=== PATIENT | female | born 1990 | race Caucasian/White ===

== ENCOUNTER 2017-10-13 23:53 | Emergency (ER) | payer OTHER ==
[2017-10-14] VITALS: BP 135/77; PULSE 84; RESP 18; TEMP 98.2
[2017-10-14] MEDS ORDERED: diphenhydrAMINE 50 MG/ML 1 ML VIAL IVP STA (00:30)
[2017-10-14] MEDS ORDERED: KETOROLAC 30 MG/ML 1 ML VIAL IVP STA (00:30)
[2017-10-14] MEDS ORDERED: METOCLOPRAMIDE 5 MG/ML 2 ML VIAL IVP STA (00:30)
[2017-10-14] MEDS ORDERED: SODIUM CHLORIDE 0.9% 1,000 ML IV STA (00:30)
--- NOTE | 2017-10-14 00:58 | CT ---
EXAMINATION TYPE: CT brain wo con DATE OF EXAM: 10/14/2017 COMPARISON: NONE HISTORY: headache CT DLP: 1108.40 mGycm. Automated Exposure Control for Dose Reduction was Utilized. TECHNIQUE: CT scan of the head is performed without contrast. FINDINGS: Ventricles and sulci appear normal. There is no mass effect nor midline shift. There is no sign of intracranial hemorrhage. The calvarium is intact. CONCLUSION: Negative CT scan of the brain. There is incomplete pneumatization of mastoid sinuses consistent with some chronic mastoiditis.
--- NOTE | 2017-10-14 01:01 | ED ---
Headache HPI - General Chief Complaint: Headache Stated Complaint: Migraine/Ankle Pain Time Seen by Provider: 10/14/17 00:19 Source: RN notes reviewed Mode of arrival: ambulatory Limitations: no limitations - History of Present Illness Initial Comments: This is a 26-year-old female who presents to the emergency department with chief complaint of migraine. Patient states that she does have a history of headaches but has never had a migraine before. She states that normally she is able to take ibuprofen and her headaches go away, however this time nothing seems to relieve the pain. Patient states that her migraine began last night at 1 AM. She states that she has not gotten any sleep. She admits to associated nausea and did have an episode of vomiting, last time being one half hours ago. Patient denies any falls, injuries or head trauma. She states that she was seen by urgent care at 4 PM this evening and was given Toradol which did not help. Patient states that the headache is located forehead and left side of her head. She describes it as a pressure and stabbing. She also admits to photophobia. Denies any chest pain or shortness of breath, abdominal pain, diarrhea or constipation, numbness or tingling, dizziness. - Related Data Allergies Allergy/AdvReac Type Severity Reaction Status Date / Time No Known Allergies Allergy Verified 10/14/17 00:00 Review of Systems ROS Statement: Those systems with pertinent positive or pertinent negative responses have been documented in the HPI. ROS Other: All systems not noted in ROS Statement are negative. Past Medical History Additional Past Medical History / Comment(s): migraines History of Any Multi-Drug Resistant Organisms: None Reported Past Surgical History: Ear Surgery, Orthopedic Surgery Additional Past Surgical History / Comment(s): bilateral ankle, mastoidectomy Past Psychological History: Anxiety, Bipolar Smoking Status: Never smoker Past Alcohol Use History: None Reported Past Drug Use History: None Reported General Exam - General Exam Comments Initial Comments: General: Awake and alert, well-developed; in no apparent distress. Patient is unkempt, lying in a dark room on the ED stretcher using her gown is a blanket. HEENT: Head atraumatic, normocephalic. Pupils are equal, round and reactive to light. Extraocular movements intact. Oropharynx moist without erythema or exudate. Neck: Supple. Normal ROM. Cardiovascular: Regular rate and rhythm. No murmurs, rubs or gallops. Chest symmetrical. Respiratory: Lungs clear to auscultation bilaterally. No wheezes, rales or rhonchi. Normal respiratory effort with no use of accessory muscles. Musculoskeletal: Normal ROM, no tenderness bilateral upper and lower extremities. Ambulating normally. Skin: [place], warm and dry without rashes or lesions. Neurological: Alert and oriented x3. CN II-XII grossly intact. Speech is fluent and answers are appropriate. No focal neuro deficits. Limitations: no limitations Course Vital Signs 10/13/17 23:58 Temperature 98.2 F Pulse Rate 84 Respiratory 18 Rate Blood Pressure 135/77 O2 Sat by Pulse 97 Oximetry Medical Decision Making - Medical Decision Making This is a 26-year-old female presents to the emergency department with chief complaint of migraine. Patient was given Toradol, Reglan and Benadryl while in the emergency department. She stated that this migraine is different from her normal headaches, that they are usually relieved with ibuprofen. Computed tomography scan of brain without contrast was obtained. This revealed no acute abnormalities. As I went in to discuss findings with patient, she was getting dressed and stated that she needed to leave as soon as possible. She stated that her ex- was going to be leaving her 2-year-old child on the doorstep at home if she did not get home. Patient did state that her symptoms had improved. She signed out AMA. - Radiology Data Radiology results: report reviewed CT brain without contrast conclusion: Negative computed tomography scan of the brain. There is incomplete pneumatization of the mastoid sinuses consistent with some chronic mastoiditis. Disposition Clinical Impression: Migraine Disposition: Left Against Medical Advice Condition: Stable Referrals: Alla Chanel MD [Primary Care Provider] - 1-2 days Time of Disposition: :
== END 2017-10-14 01:24 | disposition left against medical advice (07) ==
LOC: EC 23:53
DX: G43.909 Migraine, unspecified, not intractable, without status migrainosus (principal)
CPT/HCPCS: 70450; 99283; 96374; 96375 ×2; J1200; J2765; J1885

== ENCOUNTER 2020-03-24 15:22 | Emergency (ER) | payer OTHER ==
[2020-03-24 15:32] VITALS: TEMP 98.4
[2020-03-24] MEDS ORDERED: SODIUM CHLORIDE 0.9% 1,000 ML IV STA (15:47)
[2020-03-24] MEDS ORDERED: LORazepam 2 MG/ML INJ IV STA (15:47)
--- NOTE | 2020-03-24 15:48 | ED ---
Anxiety HPI - General Chief Complaint: Anxiety Stated Complaint: anxiety Time Seen by Provider: 03/24/20 15:25 Source: EMS, RN notes reviewed, old records reviewed Mode of arrival: EMS - History of Present Illness Initial Comments: This is a 29-year-old female DF for evaluation of severe anxiety patient resents today for evaluation of anxiety attack patient thought she was given a diet. She not homicidal or suicidal no drugs or alcohol today. She has several from severe anxiety MD Complaint: anxiety, heart racing, shortness of breath -: hour(s) Symptoms: dyspnea, palpitations Place: home Previous History of Same: Yes Severity: severe Quality: worsening, similar to prior episodes Provoking factors: emotional stress Improves With: nothing Worsens With: nothing Associated symptoms: palpitations, malaise - Related Data Home Medications: Home Medications Medication Instructions Recorded Confirmed Butalb/Acetaminophen/Caffeine 1 tab PO Q4H PRN 03/24/20 03/24/20 [Esgic 50-325-40 mg Tablet] Fenofibrate Nanocrystallized 48 mg PO DAILY 03/24/20 03/24/20 [Fenofibrate] Fluticasone Nasal [place] [Flonase 1 spray EA NOSTRIL BID 03/24/20 03/24/20 Nasal [place]] Gabapentin [Neurontin] 300 mg PO TID 03/24/20 03/24/20 Lurasidone HCl [Latuda] 60 mg PO DAILY 03/24/20 03/24/20 Norgestimate-Ethinyl Estradiol 1 tab PO DAILY 03/24/20 03/24/20 [Lhu-Wx-Wulzlgke Tablet] Omeprazole [PriLOSEC] 40 mg PO DAILY 03/24/20 03/24/20 QUEtiapine FUMARATE [SEROquel] 150 mg PO HS 03/24/20 03/24/20 buPROPion XL [Wellbutrin Xl] 450 mg PO DAILY 03/24/20 03/24/20 hydrOXYzine HCL [Atarax] 10 mg PO TID PRN 03/24/20 03/24/20 Allergies/Adverse Reactions: Allergies Allergy/AdvReac Type Severity Reaction Status Date / Time No Known Allergies Allergy Verified 03/24/20 16:26 Review of Systems ROS Statement: Those systems with pertinent positive or pertinent negative responses have been documented in the HPI. ROS Other: All systems not noted in ROS Statement are negative. Past Medical History Additional Past Medical History / Comment(s): migraines History of Any Multi-Drug Resistant Organisms: None Reported Past Surgical History: Ear Surgery, Orthopedic Surgery Additional Past Surgical History / Comment(s): bilateral ankle, mastoidectomy Past Psychological History: Anxiety, Bipolar Smoking Status: Never smoker Past Alcohol Use History: None Reported Past Drug Use History: Marijuana General Exam Limitations: no limitations General appearance: alert, in no apparent distress, anxious Head exam: Present: atraumatic, normocephalic, normal inspection Eye exam: Present: normal appearance, PERRL, EOMI. Absent: scleral icterus, conjunctival injection, periorbital swelling ENT exam: Present: normal exam, mucous membranes moist Neck exam: Present: normal inspection. Absent: tenderness, meningismus, lymphadenopathy Respiratory exam: Present: normal lung sounds bilaterally. Absent: respiratory distress, wheezes, rales, rhonchi, stridor Cardiovascular Exam: Present: normal rhythm, tachycardia, normal heart sounds. Absent: systolic murmur, diastolic murmur, rubs, gallop, clicks GI/Abdominal exam: Present: soft, normal bowel sounds. Absent: distended, tenderness, guarding, rebound, rigid Extremities exam: Present: normal inspection, full ROM, normal capillary refill. Absent: tenderness, pedal edema, joint swelling, calf tenderness Back exam: Present: normal inspection Neurological exam: Present: alert, oriented X3, CN II-XII intact Psychiatric exam: Present: depressed Skin exam: Present: warm, dry, intact, normal color. Absent: rash Course Vital Signs 03/24/20 15:23 Temperature 98.4 F Pulse Rate 117 H Respiratory 20 Rate Blood Pressure 170/116 O2 Sat by Pulse 99 Oximetry - Reevaluation(s) Reevaluation #1: 03/24/20 17:16 Medical record is reviewed Reevaluation #2: 03/24/20 17:16 Patient symptoms are improved Reevaluation #3: 03/24/20 17:16 Informed results reassured and is okay for discharge Medical Decision Making - Medical Decision Making 79 female DF for anxiety think she is going to , CT chest is negative for acute disease - Lab Data Result diagrams: 03/24/20 16:31 03/24/20 16:31 Lab Results 03/24/20 03/24/20 03/24/20 Range/Units 16:31 16:31 16:31 WBC 6.6 (3.8-10.6) k/uL RBC 4.94 (3.80-5.40) m/uL Hgb 13.8 (11.4-16.0) gm/dL Hct 43.0 (34.0-46.0) % MCV 87.1 (80.0-100.0) fL MCH 28.0 (25.0-35.0) pg MCHC 32.2 (31.0-37.0) g/dL RDW 14.1 (11.5-15.5) % Plt Count 243 (150-450) k/uL Neutrophils % 55 % Lymphocytes % 36 % Monocytes % 4 % Eosinophils % 3 % Basophils % 1 % Neutrophils # 3.6 (1.3-7.7) k/uL Lymphocytes # 2.4 (1.0-4.8) k/uL Monocytes # 0.3 (0-1.0) k/uL Eosinophils # 0.2 (0-0.7) k/uL Basophils # 0.0 (0-0.2) k/uL PT 9.5 (9.0-12.0) sec INR 0.9 (<1.2) APTT 24.4 (22.0-30.0) sec D-Dimer 0.30 (<0.60) mg/L FEU Sodium 139 (137-145) mmol/L Potassium 4.0 (3.5-5.1) mmol/L Chloride 102 (98-107) mmol/L Carbon Dioxide 25 (22-30) mmol/L Anion Gap 12 mmol/L BUN 8 (7-17) mg/dL Creatinine 0.72 (0.52-1.04) mg/dL Est GFR (CKD-EPI)AfAm >90 (>60 ml/min/1.73 sqM) Est GFR (CKD-EPI)NonAf >90 (>60 ml/min/1.73 sqM) Glucose 87 (74-99) mg/dL Calcium 9.6 (8.4-10.2) mg/dL Magnesium 2.0 (1.6-2.3) mg/dL Total Bilirubin 0.5 (0.2-1.3) mg/dL AST 37 H (14-36) U/L ALT 24 (4-34) U/L Alkaline Phosphatase 78 (38-126) U/L NT-Pro-B Natriuret Pep pg/mL Total Protein 8.1 (6.3-8.2) g/dL Albumin 4.8 (3.5-5.0) g/dL Lipase 127 (23-300) U/L 03/24/20 Range/Units 16:31 WBC (3.8-10.6) k/uL RBC (3.80-5.40) m/uL Hgb (11.4-16.0) gm/dL Hct (34.0-46.0) % MCV (80.0-100.0) fL MCH (25.0-35.0) pg MCHC (31.0-37.0) g/dL RDW (11.5-15.5) % Plt Count (150-450) k/uL Neutrophils % % Lymphocytes % % Monocytes % % Eosinophils % % Basophils % % Neutrophils # (1.3-7.7) k/uL Lymphocytes # (1.0-4.8) k/uL Monocytes # (0-1.0) k/uL Eosinophils # (0-0.7) k/uL Basophils # (0-0.2) k/uL PT (9.0-12.0) sec INR (<1.2) APTT (22.0-30.0) sec D-Dimer (<0.60) mg/L FEU Sodium (137-145) mmol/L Potassium (3.5-5.1) mmol/L Chloride (98-107) mmol/L Carbon Dioxide (22-30) mmol/L Anion Gap mmol/L BUN (7-17) mg/dL Creatinine (0.52-1.04) mg/dL Est GFR (CKD-EPI)AfAm (>60 ml/min/1.73 sqM) Est GFR (CKD-EPI)NonAf (>60 ml/min/1.73 sqM) Glucose (74-99) mg/dL Calcium (8.4-10.2) mg/dL Magnesium (1.6-2.3) mg/dL Total Bilirubin (0.2-1.3) mg/dL AST (14-36) U/L ALT (4-34) U/L Alkaline Phosphatase (38-126) U/L NT-Pro-B Natriuret Pep 22 pg/mL Total Protein (6.3-8.2) g/dL Albumin (3.5-5.0) g/dL Lipase (23-300) U/L - Radiology Data Radiology results: report reviewed (CTA chest is negative for acute disease), image reviewed Disposition Clinical Impression: Acute anxiety, Panic attack Disposition: HOME SELF-CARE Condition: Good Instructions (If sedation given, give patient instructions): Generalized Anxiety Disorder (ED) Is patient prescribed a controlled substance at d/c from ED?: No Referrals: None,Stated [Primary Care Provider] - 1-2 days
[2020-03-24 16:49] LABS: Basophils % (A) 1 %; Eosinophils # (A) 0.2 k/uL (0-0.7); Eosinophils % (A) 3 %; HGB 13.8 gm/dL (11.4-16.0); Lymphocytes # (A) 2.4 k/uL (1.0-4.8); Lymphocytes % (A) 36 %; MCHC 32.2 g/dL (31.0-37.0); MCV 87.1 fL (80.0-100.0); Mean Platelet Volume 8.6; Monocytes # (A) 0.3 k/uL (0-1.0); Monocytes % (A) 4 %; Neutrophils # (A) 3.6 k/uL (1.3-7.7); Neutrophils % (A) 55 %; Platelet Count 243 k/uL (150-450); RBC 4.94 m/uL (3.80-5.40); RDW 14.1 % (11.5-15.5); WBC 6.6 k/uL (3.8-10.6)
--- NOTE | 2020-03-24 16:59 | CT ---
EXAMINATION TYPE: CT angio chest DATE OF EXAM: 03/24/2020 COMPARISON: NONE HISTORY: Chest pain and anxiety. Rule out pulmonary embolism. CT DLP: 643.2 mGycm. Automated Exposure Control for Dose Reduction was Utilized. CONTRAST: CTA scan of the thorax is performed with IV Contrast, patient injected with 100ml mL of Isovue 370, p ulmonary embolism protocol. MIP Images are created on CT scanner and reviewed. FINDINGS: LUNGS: The lungs are grossly clear, there is no concerning parenchymal mass or nodule identified. No suspicious focal groundglass opacity or consolidation. There is no pleural effusion or pneumothorax seen. The tracheobronchial tree is patent. MEDIASTINUM: There is slightly suboptimal bolus with near equal contrast a right left heart systems b ut no convincing CT evidence for acute pulmonary embolism. Affect enhancement of the aorta without an eurysm or dissection. There are no greater than 1 cm hilar or mediastinal lymph nodes. No cardiomeg melodie or pericardial effusion is seen. OTHER: Slight dextroconvex scoliotic curvature or positioning. IMPRESSION: No CT evidence for acute pulmonary embolism. No suspicious acute pulmonary process.
[2020-03-24 17:05] LABS: ALT 24 U/L (4-34); AST 37 U/L (14-36); African American GFR (CKD) >90 (>60 ml/min/1.73 sqM); Albumin 4.8 g/dL (3.5-5.0); Alkaline Phosphatase 78 U/L (38-126); Anion Gap 12 mmol/L; Blood Urea Nitrogen 8 mg/dL (7-17); Calcium 9.6 mg/dL (8.4-10.2); Carbon Dioxide 25 mmol/L (22-30); Chloride 102 mmol/L (98-107); Glucose 87 mg/dL (74-99); Non-African American GFR(CKD) >90 (>60 ml/min/1.73 sqM); Sodium 139 mmol/L (137-145); Total Bilirubin 0.5 mg/dL (0.2-1.3); Total Protein 8.1 g/dL (6.3-8.2)
[2020-03-24 17:10] LABS: D-Dimer 0.3 mg/L FEU (<0.60); INR 0.9 (<1.2); Partial Thromboplastin Time 24.4 sec (22.0-30.0); Prothrombin Time 9.5 sec (9.0-12.0)
[2020-03-24 17:31] VITALS: BP 130/90; PULSE 90; RESP 18
== END 2020-03-24 17:26 | disposition home or self-care (01) ==
LOC: EC 15:22
DX: F41.0 Panic disorder [episodic paroxysmal anxiety] (principal); Z79.51 Long term (current) use of inhaled steroids; Z79.899 Other long term (current) drug therapy
CPT/HCPCS: 36415; 93005; 85379; 83880; 80053; 83690; 83735; 84484; 85025; 85610; 85730; 71275; 99284; 96374; 96361; J2060; Q9967

== ENCOUNTER 2020-04-28 23:33 | Emergency (ER) | payer OTHER ==
[2020-04-28 23:39] VITALS: RESP 20
--- NOTE | 2020-04-28 23:44 | ED ---
Lower Extremity Injury HPI - General Stated Complaint: Leg Fracture Time Seen by Provider: 04/28/20 23:35 Source: patient, EMS, RN notes reviewed Mode of arrival: EMS Limitations: physical limitation - History of Present Illness Initial Comments: 29-year-old female presents emergency Department as a transfer from [facility] with chief complaint of left ankle injury. Patient states that she was walking stepped states that her ankle rolled and felt a snap. Patient was found to have tib-fib fracture. Patient does admit that she's had bilateral ankle surgery in 2014. Patient states that she does not see a current orthopedic physician. Patient denies any paresthesias. Patient had multiple rounds of pain medications and pain was not controlled at that time. Patient denies any other complaints. - Related Data Home Medications Medication Instructions Recorded Confirmed Butalb/Acetaminophen/Caffeine 1 tab PO Q4H PRN 03/24/20 03/24/20 [Esgic 50-325-40 mg Tablet] Fenofibrate Nanocrystallized 48 mg PO DAILY 03/24/20 03/24/20 [Fenofibrate] Fluticasone Nasal [place] [Flonase 1 spray EA NOSTRIL BID 03/24/20 03/24/20 Nasal [place]] Gabapentin [Neurontin] 300 mg PO TID 03/24/20 03/24/20 Lurasidone HCl [Latuda] 60 mg PO DAILY 03/24/20 03/24/20 Norgestimate-Ethinyl Estradiol 1 tab PO DAILY 03/24/20 03/24/20 [Ffs-Yr-Zpuggsik Tablet] Omeprazole [PriLOSEC] 40 mg PO DAILY 03/24/20 03/24/20 QUEtiapine FUMARATE [SEROquel] 150 mg PO HS 03/24/20 03/24/20 buPROPion XL [Wellbutrin Xl] 450 mg PO DAILY 03/24/20 03/24/20 hydrOXYzine HCL [Atarax] 10 mg PO TID PRN 03/24/20 03/24/20 Allergies Allergy/AdvReac Type Severity Reaction Status Date / Time No Known Allergies Allergy Verified 04/28/20 23:38 Review of Systems ROS Statement: Those systems with pertinent positive or pertinent negative responses have been documented in the HPI. ROS Other: All systems not noted in ROS Statement are negative. Past Medical History Additional Past Medical History / Comment(s): migraines History of Any Multi-Drug Resistant Organisms: None Reported Past Surgical History: Ear Surgery, Orthopedic Surgery Additional Past Surgical History / Comment(s): bilateral ankle, mastoidectomy Past Psychological History: Anxiety, Bipolar Smoking Status: Never smoker Past Alcohol Use History: None Reported Past Drug Use History: Marijuana General Exam Limitations: no limitations General appearance: alert, in no apparent distress Head exam: Present: atraumatic, normocephalic, normal inspection Respiratory exam: Present: normal lung sounds bilaterally. Absent: respiratory distress, wheezes, rales, rhonchi, stridor Cardiovascular Exam: Present: regular rate, normal rhythm, normal heart sounds. Absent: systolic murmur, diastolic murmur, rubs, gallop, clicks GI/Abdominal exam: Present: soft, normal bowel sounds. Absent: distended, tenderness, guarding, rebound, rigid Extremities exam: Present: other (There is a short leg splint on the left lower extremity color and Warmth equal, patient has full sensation) Skin exam: Present: warm, dry, intact, normal color. Absent: rash Course Vital Signs 04/28/20 23:34 Temperature 98.6 F Pulse Rate 70 Respiratory 20 Rate Blood Pressure 141/103 O2 Sat by Pulse 97 Oximetry Medical Decision Making - Medical Decision Making Discussed with on-call orthopedics [facility] orth[facility] who reviewed imaging and recommends patient referred to, orthopedic surgeon. Patient is neurovascular intact patient still reports pain. Patient will be transferred to [facility]. Case discussed with [facility] ER and orthopedic surgeon Disposition Clinical Impression: Closed fracture of shaft of left tibia and fibula Disposition: OTHER INSTITUTION NOT DEFINED Condition: Stable Referrals: Alla Chanel MD [Primary Care Provider] - 1-2 days Time of Disposition: 23:57 - Out of Hospital Transfer - Req. Specs Out of Hospital Transfer - Requested Specifics: Other Emergency Center ([facility])
[2020-04-29 00:41] VITALS: BP 148/90; PULSE 80; TEMP 98.3
== END 2020-04-29 00:49 | disposition other institution (70) ==
LOC: EC 23:33
DX: S82.202A Unspecified fracture of shaft of left tibia, initial encounter for closed fracture (principal); S82.402A Unspecified fracture of shaft of left fibula, initial encounter for closed fracture; F41.9 Anxiety disorder, unspecified; F31.9 Bipolar disorder, unspecified; G43.909 Migraine, unspecified, not intractable, without status migrainosus; Z79.51 Long term (current) use of inhaled steroids; Z79.3 Long term (current) use of hormonal contraceptives; Z79.899 Other long term (current) drug therapy; Z98.890 Other specified postprocedural states; X50.1XXA Overexertion from prolonged static or awkward postures, initial encounter; Y93.01 Activity, walking, marching and hiking; Y92.009 Unspecified place in unspecified non-institutional (private) residence as the place of occurrence of the external cause
CPT/HCPCS: 99284

== ENCOUNTER 2020-05-14 16:22 | Emergency (ER) | payer OTHER ==
[2020-05-14 16:39] VITALS: RESP 18
[2020-05-14] MEDS ORDERED: LORazepam 2 MG/ML INJ IM STA (17:25)
[2020-05-14] MEDS ORDERED: MORPHINE SULFATE 4 MG/ML SYRINGE IVP STA (17:26)
[2020-05-14] MEDS ORDERED: MORPHINE SULFATE 4 MG/ML SYRINGE IM STA (17:36)
--- NOTE | 2020-05-14 17:39 | ED ---
Extremity Problem HPI - General Chief complaint: Extremity Problem,Nontraumatic Stated complaint: left lower extremity pain Time Seen by Provider: 05/14/20 16:53 Source: patient Mode of arrival: wheelchair Limitations: no limitations - History of Present Illness Initial comments: Patient is a 29-year-old female presenting to the emergency room with a chief complaint of left leg pain. Patient states about 2 weeks ago she had a left tibia-fibula fracture. States it was reduced in this emergency department and she was transferred to [facility]. States Dr. Ho perform surgery with plate and screws. Patient states she has been tolerating the pain well except for the last 2 days when she's had increased pain. States she was given oxycodone but does not want to take it. States she's also been getting very sleepy whenever she is taking the medication. She also reports having one 2 vomiting episodes yesterday and today. States she also has anxiety which is not well controlled. States her anxiety is really high at the moment. - Related Data Home Medications Medication Instructions Recorded Confirmed Butalb/Acetaminophen/Caffeine 1 tab PO Q4H PRN 03/24/20 03/24/20 [Esgic 50-325-40 mg Tablet] Fenofibrate Nanocrystallized 48 mg PO DAILY 03/24/20 03/24/20 [Fenofibrate] Fluticasone Nasal [place] [Flonase 1 spray EA NOSTRIL BID 03/24/20 03/24/20 Nasal [place]] Gabapentin [Neurontin] 300 mg PO TID 03/24/20 03/24/20 Lurasidone HCl [Latuda] 60 mg PO DAILY 03/24/20 03/24/20 Norgestimate-Ethinyl Estradiol 1 tab PO DAILY 03/24/20 03/24/20 [Euz-Pt-Ngfelgiv Tablet] Omeprazole [PriLOSEC] 40 mg PO DAILY 03/24/20 03/24/20 QUEtiapine FUMARATE [SEROquel] 150 mg PO HS 03/24/20 03/24/20 buPROPion XL [Wellbutrin Xl] 450 mg PO DAILY 03/24/20 03/24/20 hydrOXYzine HCL [Atarax] 10 mg PO TID PRN 03/24/20 03/24/20 Allergies Allergy/AdvReac Type Severity Reaction Status Date / Time No Known Allergies Allergy Verified 05/14/20 16:39 Review of Systems ROS Statement: Those systems with pertinent positive or pertinent negative responses have been documented in the HPI. ROS Other: All systems not noted in ROS Statement are negative. Past Medical History Additional Past Medical History / Comment(s): migraines History of Any Multi-Drug Resistant Organisms: None Reported Past Surgical History: Ear Surgery, Orthopedic Surgery Additional Past Surgical History / Comment(s): bilateral ankle, mastoidectomy Past Psychological History: Anxiety, Bipolar Smoking Status: Never smoker Past Alcohol Use History: None Reported Past Drug Use History: Marijuana General Exam Limitations: no limitations General appearance: alert, in no apparent distress, anxious, obese Head exam: Present: atraumatic, normocephalic, normal inspection Eye exam: Present: normal appearance, PERRL, EOMI Pupils: Present: normal accommodation ENT exam: Present: normal exam, normal oropharynx, mucous membranes moist, TM's normal bilaterally, normal external ear exam Neck exam: Present: normal inspection, full ROM. Absent: tenderness Respiratory exam: Present: normal lung sounds bilaterally. Absent: respiratory distress, wheezes, rales Cardiovascular Exam: Present: regular rate, normal rhythm, normal heart sounds Extremities exam: Present: normal inspection (Cast was removed. Mostly the pain is located along the anterior aspect of the tibia. There is no obvious signs of infection. The incision sites are healing well. Sutures are intact.), full ROM, tenderness (Tenderness along the anterior aspect of the tibia, left.), normal capillary refill, other (+2 dorsalis pedis and posterior tibialis bilaterally. Sensation to light touch and temperature intact.). Absent: pedal edema, joint swelling, calf tenderness (tenderness) Back exam: Present: normal inspection, full ROM. Absent: tenderness, CVA tenderness (R), CVA tenderness (L) Neurological exam: Present: alert, oriented X3 Psychiatric exam: Present: normal affect, anxious Skin exam: Present: warm, dry, intact, normal color Course Vital Signs 05/14/20 05/14/20 16:32 19:45 Temperature 98.9 F Pulse Rate 98 84 Respiratory 18 18 Rate Blood Pressure 151/91 145/107 O2 Sat by Pulse 98 99 Oximetry Procedures - Cast Removal Reason for procedure: other (To evaluate for DVT) Cut Saw used: Yes Cast procedure: removal Post Removal Neuro Exam: intact Post Removal Vascular Exam: intact Patient Tolerated Procedure: well, no complications - Orthopedic Splinting/Casting Injury #1 Side: left Lower Extremity Injury Location: short leg Lower Extremity Immobilizer: posterior splint, Florencio wrap, synthetic pre-padded splint Medical Decision Making - Medical Decision Making patient is a 29-year-old male presenting to emergency Department with chief complaint of left leg pain. To perform a thorough physical examination I had to remove the cast. This was performed with a saw. Patient did tolerate procedure well. She does have history of anxiety and had a panic attack in the emergency department. Patient was given 1 mg of Ativan. She also continued to complain of pain and was given 4 mg of morphine. Once the cast was removed, the sutures appear to be healing well. There is no overlying cellulitic skin changes that would suggest cellulitis or any other infection. She is neurovascularly intact in the left lower extremity. There was a concern for DVT. Doppler ultrasound performed showed no signs of DVT. She does not have any chest pain or shortness of breath. Posterior splint was applied. She already has crutches at home and declined new ones. She is going to follow-up with her family resource specialist in the next few days. She was advised to avoid putting pressure on the leg. Allison has oxycodone for pain at home. Strict return parameters were thoroughly discussed the patient was understanding and agreeable. Her vitals are stable. Case discussed with physician. Disposition Clinical Impression: Leg pain, left Disposition: HOME SELF-CARE Condition: Stable Instructions (If sedation given, give patient instructions): Leg Pain (ED) Additional Instructions: Follow-up with the family resource specialist. Return to emergency department if symptoms worsen. Is patient prescribed a controlled substance at d/c from ED?: No Referrals: Nilesh Cummins MD [Primary Care Provider] - 1-2 days Time of Disposition: 20:07
--- NOTE | 2020-05-14 19:26 | US ---
EXAMINATION TYPE: US venous doppler duplex LE LT DATE OF EXAM: 05/14/2020 7:09 PM COMPARISON: NONE CLINICAL HISTORY: 2 wk post op tib fib fx repair, r/o dvt. 2 weeks pos op tib fib fx repair. R/O DVT. No hx of DVT. Patient unsure if she is on blood thinners. SIDE PERFORMED: Left TECHNIQUE: The lower extremity deep venous system is examined utilizing real time linear array sonog neil with graded compression, doppler sonography and color-flow sonography. VESSELS IMAGED: External Iliac Vein (EIV) Common Femoral Vein Deep Femoral Vein Greater Saphenous Vein * Femoral Vein Popliteal Vein Small Saphenous Vein * Proximal Calf Veins (* superficial vessels) Left Leg: No evidence of DVT in veins imaged at this time from prox calf veins to EIV. IMPRESSION: No sign of deep vein thrombosis in the left leg.
[2020-05-14 20:28] VITALS: BP 148/85; PULSE 89; TEMP 98
== END 2020-05-14 20:39 | disposition home or self-care (01) ==
LOC: EC 16:22
DX: M79.605 Pain in left leg (principal); F41.0 Panic disorder [episodic paroxysmal anxiety]; G43.909 Migraine, unspecified, not intractable, without status migrainosus; F31.9 Bipolar disorder, unspecified; Z79.3 Long term (current) use of hormonal contraceptives; Z79.899 Other long term (current) drug therapy; Z98.890 Other specified postprocedural states; Z87.81 Personal history of (healed) traumatic fracture
CPT/HCPCS: 93971; 96372 ×2; 99283; 29515; J2060; J2270

== ENCOUNTER 2020-05-16 20:43 | Observation (INO) | payer OTHER ==
[2020-05-16] MEDS ORDERED: NALOXONE 0.4 MG/ML 1 ML VIAL IVP STA ×3 (21:17→23:01)
--- NOTE | 2020-05-16 22:22 | XR ---
EXAMINATION TYPE: XR foot complete LT DATE OF EXAM: 05/16/2020 COMPARISON: NONE HISTORY: Pain TECHNIQUE: 3 views FINDINGS: Metatarsals are intact. I see no fracture nor dislocation. There is a plate fixing the dist al fibula. There is intramedullary bruno fixing the distal tibia. The tarsal bones are intact. IMPRESSION: No acute abnormality of the left foot.
--- NOTE | 2020-05-16 22:24 | XR ---
EXAMINATION TYPE: XR tibia fibula LT DATE OF EXAM: 05/16/2020 COMPARISON: 04/28/2020 HISTORY: Pain TECHNIQUE: 4 views FINDINGS: There is intramedullary bruno fixing fracture of the distal shaft of the tibia. There is a co mminuted fracture proximal shaft of the fibula without displacement. There is a plate with screws fix ing the distal fibula. IMPRESSION: Fractures as above. Fragments are in good anatomic position. No complicating process seen . There is satisfactory reduction of the tibia fracture compared to old exam.
[2020-05-16 22:36] LABS: Basophils # (A) 0.1 k/uL (0-0.2); Basophils % (A) 1 %; Eosinophils # (A) 0.2 k/uL (0-0.7); Eosinophils % (A) 4 %; HCT 36.1 % (34.0-46.0); HGB 11.7 gm/dL (11.4-16.0); Lymphocytes # (A) 3.1 k/uL (1.0-4.8); Lymphocytes % (A) 52 %; MCH 28.6 pg (25.0-35.0); MCHC 32.3 g/dL (31.0-37.0); MCV 88.5 fL (80.0-100.0); Mean Platelet Volume 8.3; Monocytes # (A) 0.3 k/uL (0-1.0); Monocytes % (A) 4 %; Neutrophils # (A) 2.2 k/uL (1.3-7.7); Neutrophils % (A) 37 %; Platelet Count 303 k/uL (150-450); RBC 4.07 m/uL (3.80-5.40); RDW 13.9 % (11.5-15.5); WBC 5.9 k/uL (3.8-10.6)
[2020-05-16 22:56] LABS: ALT 17 U/L (4-34); AST 35 U/L (14-36); Acetaminophen <10.0 ug/mL; African American GFR (CKD) >90 (>60 ml/min/1.73 sqM); Albumin 3.8 g/dL (3.5-5.0); Alcohol <10 mg/dL; Alkaline Phosphatase 91 U/L (38-126); Anion Gap 6 mmol/L; Blood Urea Nitrogen 14 mg/dL (7-17); Calcium 8.9 mg/dL (8.4-10.2); Carbon Dioxide 25 mmol/L (22-30); Chloride 109 mmol/L (98-107); Glucose 93 mg/dL (74-99); Non-African American GFR(CKD) >90 (>60 ml/min/1.73 sqM); Potassium 4.4 mmol/L (3.5-5.1); Salicylate <1.0 mg/dL; Sodium 140 mmol/L (137-145); Total Bilirubin 0.4 mg/dL (0.2-1.3); Total Protein 6.8 g/dL (6.3-8.2)
--- NOTE | 2020-05-16 23:03 | ED ---
General Adult HPI - General Source: patient, EMS, RN notes reviewed, old records reviewed Mode of arrival: EMS <Mason Hernandez - Last Filed: 05/16/20 23:39> <Rony Beard - Last Filed: 05/17/20 02:01> - General Chief complaint: Fall Stated complaint: leg pain Time Seen by Provider: 05/16/20 21:13 - History of Present Illness Initial comments: 29-year-old female patient past history significant for a tib-fib fracture number weeks ago which was repaired surgically presented to ED for evaluation of pain in that area. Patient was prescribed pressure on and walked out and not having a lot of pain. Upon evaluation room patient appears very tired. She reports that she took both her Percocet as well as Xanax. Denies any alcohol use. Denies falling hitting her head or any other complaints. (Mason Hernandez) - Related Data Home Medications Medication Instructions Recorded Confirmed Butalb/Acetaminophen/Caffeine 1 tab PO Q4H PRN 03/24/20 03/24/20 [Esgic 50-325-40 mg Tablet] Fenofibrate Nanocrystallized 48 mg PO DAILY 03/24/20 03/24/20 [Fenofibrate] Fluticasone Nasal [place] [Flonase 1 spray EA NOSTRIL BID 03/24/20 03/24/20 Nasal [place]] Gabapentin [Neurontin] 300 mg PO TID 03/24/20 03/24/20 Lurasidone HCl [Latuda] 60 mg PO DAILY 03/24/20 03/24/20 Norgestimate-Ethinyl Estradiol 1 tab PO DAILY 03/24/20 03/24/20 [Vlt-Jw-Pzrhwvjs Tablet] Omeprazole [PriLOSEC] 40 mg PO DAILY 03/24/20 03/24/20 QUEtiapine FUMARATE [SEROquel] 150 mg PO HS 03/24/20 03/24/20 buPROPion XL [Wellbutrin Xl] 450 mg PO DAILY 03/24/20 03/24/20 hydrOXYzine HCL [Atarax] 10 mg PO TID PRN 03/24/20 03/24/20 Allergies Allergy/AdvReac Type Severity Reaction Status Date / Time No Known Allergies Allergy Verified 05/14/20 16:39 Review of Systems ROS Other: All systems not noted in ROS Statement are negative. <Mason Hernandez - Last Filed: 05/16/20 23:39> ROS Other: All systems not noted in ROS Statement are negative. <Rony Beard - Last Filed: 05/17/20 02:01> ROS Statement: Those systems with pertinent positive or pertinent negative responses have been documented in the HPI. Past Medical History Additional Past Medical History / Comment(s): migraines History of Any Multi-Drug Resistant Organisms: None Reported Past Surgical History: Ear Surgery, Orthopedic Surgery Additional Past Surgical History / Comment(s): bilateral ankle, mastoidectomy Past Psychological History: Anxiety, Bipolar Smoking Status: Former smoker Past Alcohol Use History: None Reported Past Drug Use History: Marijuana <Mason Hernandez - Last Filed: 05/16/20 23:39> General Exam <Mason Hernandez - Last Filed: 05/16/20 23:39> - General Exam Comments Initial Comments: Constitutional: NAD HEENT: NC/AT, trachea midline, neck supple, no lymphadenopathy. Posterior pharyn x non erythematous, without exudates. External ears appear normal, without discharge. Mucous membranes moist. Eyes PERRLA, EOM intact. There is no scleral icterus. No pallor noted. Cardiopulmonary: RRR, no murmurs, rubs or gallops, no JVD noted. Lungs CTAB in anterior and posterior castro. No peripheral edema. Abdominal exam: Abdomen soft and non-distended. Abdomen non-tender to palpation in all 4 quadrants. Bowel sounds active in LLQ. No hepatosplenomegaly. No ecchymosis Neuro: CN II-XII grossly intact. No nuchal rigidity. No raccon eyes, no andino sign, no hemotympanum. No cervical spinal tenderness. MSK: Full active ROM in upper and lower extremities, 5/5 stregnth. (Mason Hernandez) Course Vital Signs 05/16/20 05/16/20 05/16/20 20:44 21:22 21:47 Temperature 98.3 F Pulse Rate 76 Pulse Rate [ Pulse Oximetery ] Respiratory 18 16 16 Rate Blood Pressure 137/104 Blood Pressure [Right Arm] O2 Sat by Pulse 99 Oximetry 05/16/20 05/16/20 05/16/20 22:30 23:00 23:14 Temperature 98.5 F Pulse Rate 62 72 Pulse Rate [ Pulse Oximetery ] Respiratory 20 20 20 Rate Blood Pressure 124/95 123/89 Blood Pressure [Right Arm] O2 Sat by Pulse 99 99 Oximetry 05/17/20 05/17/20 05/17/20 00:00 01:24 01:33 Temperature 98.6 F 97.8 F Pulse Rate 72 Pulse Rate [ 62 62 Pulse Oximetery ] Respiratory 18 20 20 Rate Blood Pressure 125/85 Blood Pressure 127/88 [Right Arm] O2 Sat by Pulse 99 100 Oximetry Medical Decision Making - Lab Data Result diagrams: 05/16/20 22:26 05/16/20 22:26 - EKG Data -: EKG Interpreted by Me (and Dr. Galvan ) <Mason Hernandez - Last Filed: 05/16/20 23:39> - Lab Data Result diagrams: 05/16/20 22:26 05/16/20 22:26 <Rony Beard - Last Filed: 05/17/20 02:01> - Medical Decision Making 29-year-old female patient resident for evaluation of pain. Patient will symptoms are stable, afebrile. Patient was very tired appearing states that she took Xanax and Percocet prior to coming in. Denies alcohol usage. Patient falling asleep wall conducting an IV. Narcan was administered. Patient became more responsive. Splint was removed from lower extremity patient neurovascularly intact. Incision site is clean and dry. Plain films were obtained which displayed satisfactory reduction. Patient again became very lethargic, minimally responsive. Narcan was administered again. Patient protecting her airway respirations are even and unlabored oxygen saturation at 100%. Left lower extremity splinted in long leg posterior splint. patient placed on a Narcan drip. Signed out to Dr. Galvan. (Mason Hernandez) I saw this patient in conjunction with the physician patient support assistant. I performed independent history and physical exam. When I went to see the patient, it appeared that the Narcan had been effective in reversing her narcotics. The patient's pupils are proximal 7 mm bilaterally and briskly reactive. The patient does arouse to noxious stimuli though she is somewhat somnolent. The patient does have a good respiratory rate. She does have protective airway reflexes. As the patient does remain very somnolent, discussed case with Dr. Cummins who will admit for further observation. At this point no evidence of impending airway compromise. (Rony Beard) - Lab Data Lab Results 05/16/20 05/16/20 05/16/20 Range/Units 22:26 22:26 22:26 WBC 5.9 (3.8-10.6) k/uL RBC 4.07 (3.80-5.40) m/uL Hgb 11.7 (11.4-16.0) gm/dL Hct 36.1 (34.0-46.0) % MCV 88.5 (80.0-100.0) fL MCH 28.6 (25.0-35.0) pg MCHC 32.3 (31.0-37.0) g/dL RDW 13.9 (11.5-15.5) % Plt Count 303 (150-450) k/uL Neutrophils % 37 % Lymphocytes % 52 % Monocytes % 4 % Eosinophils % 4 % Basophils % 1 % Neutrophils # 2.2 (1.3-7.7) k/uL Lymphocytes # 3.1 (1.0-4.8) k/uL Monocytes # 0.3 (0-1.0) k/uL Eosinophils # 0.2 (0-0.7) k/uL Basophils # 0.1 (0-0.2) k/uL Sodium (137-145) mmol/L Potassium (3.5-5.1) mmol/L Chloride (98-107) mmol/L Carbon Dioxide (22-30) mmol/L Anion Gap mmol/L BUN (7-17) mg/dL Creatinine (0.52-1.04) mg/dL Est GFR (CKD-EPI)AfAm (>60 ml/min/1.73 sqM) Est GFR (CKD-EPI)NonAf (>60 ml/min/1.73 sqM) Glucose (74-99) mg/dL Calcium (8.4-10.2) mg/dL Total Bilirubin (0.2-1.3) mg/dL AST (14-36) U/L ALT (4-34) U/L Alkaline Phosphatase (38-126) U/L Total Protein (6.3-8.2) g/dL Albumin (3.5-5.0) g/dL Urine HCG, Qual Not Detected (Not Detectd) Salicylates mg/dL Urine Opiates Screen Not Detected (NotDetected) Ur Oxycodone Screen Not Detected (NotDetected) Urine Methadone Screen Not Detected (NotDetected) Ur Propoxyphene Screen Not Detected (NotDetected) Acetaminophen ug/mL Ur Barbiturates Screen Detected H (NotDetected) U Tricyclic Antidepress Not Detected (NotDetected) Ur Phencyclidine Scrn Not Detected (NotDetected) Ur Amphetamines Screen Not Detected (NotDetected) U Methamphetamines Scrn Not Detected (NotDetected) U Benzodiazepines Scrn Detected H (NotDetected) Urine Cocaine Screen Not Detected (NotDetected) U Marijuana (THC) Screen Detected H (NotDetected) Serum Alcohol mg/dL 05/16/20 Range/Units 22:26 WBC (3.8-10.6) k/uL RBC (3.80-5.40) m/uL Hgb (11.4-16.0) gm/dL Hct (34.0-46.0) % MCV (80.0-100.0) fL MCH (25.0-35.0) pg MCHC (31.0-37.0) g/dL RDW (11.5-15.5) % Plt Count (150-450) k/uL Neutrophils % % Lymphocytes % % Monocytes % % Eosinophils % % Basophils % % Neutrophils # (1.3-7.7) k/uL Lymphocytes # (1.0-4.8) k/uL Monocytes # (0-1.0) k/uL Eosinophils # (0-0.7) k/uL Basophils # (0-0.2) k/uL Sodium 140 (137-145) mmol/L Potassium 4.4 (3.5-5.1) mmol/L Chloride 109 H (98-107) mmol/L Carbon Dioxide 25 (22-30) mmol/L Anion Gap 6 mmol/L BUN 14 (7-17) mg/dL Creatinine 0.64 (0.52-1.04) mg/dL Est GFR (CKD-EPI)AfAm >90 (>60 ml/min/1.73 sqM) Est GFR (CKD-EPI)NonAf >90 (>60 ml/min/1.73 sqM) Glucose 93 (74-99) mg/dL Calcium 8.9 (8.4-10.2) mg/dL Total Bilirubin 0.4 (0.2-1.3) mg/dL AST 35 (14-36) U/L ALT 17 (4-34) U/L Alkaline Phosphatase 91 (38-126) U/L Total Protein 6.8 (6.3-8.2) g/dL Albumin 3.8 (3.5-5.0) g/dL Urine HCG, Qual (Not Detectd) Salicylates <1.0 mg/dL Urine Opiates Screen (NotDetected) Ur Oxycodone Screen (NotDetected) Urine Methadone Screen (NotDetected) Ur Propoxyphene Screen (NotDetected) Acetaminophen <10.0 ug/mL Ur Barbiturates Screen (NotDetected) U Tricyclic Antidepress (NotDetected) Ur Phencyclidine Scrn (NotDetected) Ur Amphetamines Screen (NotDetected) U Methamphetamines Scrn (NotDetected) U Benzodiazepines Scrn (NotDetected) Urine Cocaine Screen (NotDetected) U Marijuana (THC) Screen (NotDetected) Serum Alcohol <10 mg/dL - EKG Data EKG Comments: ventricular rate 59, painful 152, QRS 78, QT/QTc 458/453. Sinus bradycardia, low voltage qrs, borderling EKG. No concern for acute ischemia at this time. (Mason Hernandez) Disposition Is patient prescribed a controlled substance at d/c from ED?: No <Mason Hernandez - Last Filed: 05/16/20 23:39> <Rony Beard - Last Filed: 05/17/20 02:01> Clinical Impression: Overdose, Opioid overdose, Benzodiazepine overdose Disposition: ADMITTED IP TO THIS HOSP Condition: Serious Referrals: Nilesh Cummins MD [Primary Care Provider] - 1-2 days
[2020-05-16] MEDS ORDERED: NALOXONE (MDV) 2 MG in SODIUM CHLORIDE 0.9% 250 ML IV SCH (23:15)
[2020-05-16] MEDS ORDERED: NALOXONE 0.4 MG/ML 1 ML VIAL IV PRN (23:17)
[2020-05-16 23:23] LABS: Cocaine Screen,Urine Not Detected (NotDetected); Phencyclidine Screen,Urine Not Detected (NotDetected); Urn Cannabinoid Scrn Detected (NotDetected)
[2020-05-16 23:24] LABS: Amphetamine Screen,Urine Not Detected (NotDetected); Barbiturate Screen,Urine Detected (NotDetected); Benzodiazepines Screen,Urine Detected (NotDetected); Methadone Screen, Urine Not Detected (NotDetected); Opiate Screen,Urine Not Detected (NotDetected); Oxycodone Screen, Urine Not Detected (NotDetected); Tricyclic Antidepressant,Urine Not Detected (NotDetected)
[2020-05-16] MEDS: SODIUM CHLORIDE 0.9% 1,000 ML IV SCH (23:45)
[2020-05-17] MEDS ORDERED: KETOROLAC 15 MG/ML 1 ML VIAL IM PRN (03:02)
[2020-05-17] MEDS ORDERED: KETOROLAC 15 MG/ML 1 ML VIAL IVP SCH (06:00)
[2020-05-17] MEDS: KETOROLAC 15 MG/ML 1 ML VIAL IVP PRN ×3 (07:28→19:44)
[2020-05-17] MEDS: SODIUM CHLORIDE 0.9% 1,000 ML IV SCH (14:10)
[2020-05-17 20:10] VITALS: BP 124/85; PULSE 74; RESP 18; TEMP 98.2
--- NOTE | 2020-05-18 22:03 | HP ---
HISTORY AND PHYSICAL CHIEF COMPLAINT: Mental status changes and overdose. HISTORY OF PRESENT ILLNESS: This is the first known admission for this lady to this hospital. She is a new patient. She was in the office the day before the day or the day of her admission here with complaints of pain in the lower leg where she had a fracture which had been treated with open reduction, internal fixation about 2 weeks ago. She apparently fell down some stairs. When she was in the office, she seemed a little bit lethargic. She came into the emergency room obtunded. She responded slightly to Narcan, but she was admitted as a probable overdose. There is no sign of trauma. Review of systems could not be obtained at that time. Past medical history, family history, and personal and social histories similarly were unobtainable. PHYSICAL EXAMINATION: Blood pressure 138/80 with a pulse of 73, respirations of 12, and she is afebrile. In general she appeared to be slightly overweight, well nourished and well hydrated. Head, ears, eyes, nose, mouth and throat were normal. Gaze was conjugate. Neck was supple. Neck veins were not distended and the carotids were normal. The chest was clear to auscultation. Cardiac exam demonstrated sinus rhythm. The abdomen was soft and nontender without any masses or visceromegaly. Extremities demonstrated the splint on the left lower leg. Neurologically, she was lethargic, but she did not have any other neurologic findings. She is admitted to the hospital with the diagnoses: 1. Mental status changes. 2. Probable substance abuse and/or overdose. 3. Recent fracture of left tibia and fibula. PLAN: 1. Bed rest. 2. IV fluids. 3. Frequent monitoring of her neurologic status and vital signs. MMODL / IJN: [id number] /
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
== END 2020-05-17 20:43 | disposition home or self-care (01) ==
LOC: EC 20:43 → 1SOBS 05-17 00:26
PROVIDERS: ADMIT Family Medicine; ATTEND Family Medicine
DX: T40.2X1A Poisoning by other opioids, accidental (unintentional), initial encounter (principal); T42.4X1A Poisoning by benzodiazepines, accidental (unintentional), initial encounter; R41.82 Altered mental status, unspecified; S82.209D Unspecified fracture of shaft of unspecified tibia, subsequent encounter for closed fracture with routine healing; W10.9XXD Fall (on) (from) unspecified stairs and steps, subsequent encounter; E66.3 Overweight; Z68.30 Body mass index [BMI] 30.0-30.9, adult; F31.9 Bipolar disorder, unspecified; Z87.891 Personal history of nicotine dependence; Z79.3 Long term (current) use of hormonal contraceptives; Z79.899 Other long term (current) drug therapy
CPT/HCPCS: 96376 ×2; 96374; 99285; 36415; 93005; 80053; 85025; 81025; 80306; 83520; 73590; 73630; G0378; G0480 ×2; J2310; J1885; 80320; 80329

== ENCOUNTER 2020-05-20 04:06 | Inpatient (IN) | payer MEDICAID, OTHER ==
[2020-05-20] MEDS: LORazepam 2 MG/ML INJ IM STA ×2 (06:09→13:16)
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
[2020-05-20 07:18] LABS: Appearance,Urine Clear (Clear); Bilirubin,Urine Negative (Negative); Blood,Urine Negative (Negative); Color,Urine Yellow; Glucose,Urine (UA) Negative (Negative); Ketones,Urine Negative (Negative); Leukocyte Esterase,Urine Negative (Negative); Nitrite,Urine Negative (Negative); Protein,Urine Negative (Negative); Specific Gravity,Urine 1.017 (1.001-1.035); Urobilinogen,Urine <2.0 mg/dL (<2.0)
[2020-05-20 07:46] LABS: Amphetamine Screen,Urine Not Detected (NotDetected); Barbiturate Screen,Urine Detected (NotDetected); Benzodiazepines Screen,Urine Detected (NotDetected); Cocaine Screen,Urine Not Detected (NotDetected); Methadone Screen, Urine Not Detected (NotDetected); Opiate Screen,Urine Not Detected (NotDetected); Oxycodone Screen, Urine Not Detected (NotDetected); Phencyclidine Screen,Urine Not Detected (NotDetected); Tricyclic Antidepressant,Urine Not Detected (NotDetected); Urn Cannabinoid Scrn Not Detected (NotDetected)
[2020-05-20] MEDS ORDERED: LORazepam 1 MG TAB PO STA (10:16)
[2020-05-20] MEDS ORDERED: IBUPROFEN 800 MG TAB PO STA (10:17)
[2020-05-20] MEDS ORDERED: ACETAMINOPHEN TAB 325 MG TAB PO STA (15:37)
[2020-05-20] MEDS ORDERED: MAGNESIUM HYDROXIDE 2,400 MG/10 ML CUP PO PRN (18:12)
[2020-05-20] MEDS ORDERED: MAG HYDROX/AL HYDROX/SIMETH 30 ML CUP PO PRN (18:12)
[2020-05-20] MEDS ORDERED: ZIPRASIDONE 20 MG VIAL IM PRN (18:12)
[2020-05-20] MEDS: traMADol 50 MG TAB PO PRN (19:07)
[2020-05-20] MEDS: FLUTICASONE 50MCG/SPRAY NASAL 16GM EA NOSTRIL SCH (20:23)
[2020-05-20] MEDS: LURASIDONE 20 MG TAB PO SCH (20:24)
[2020-05-20] MEDS: FLUoxetine HCL 20 MG CAP PO SCH (20:24)
[2020-05-20] MEDS: GABAPENTIN 300 MG CAP PO SCH (20:25)
[2020-05-20] MEDS: QUEtiapine 100 MG TAB PO SCH (21:11)
[2020-05-20] MEDS: LORazepam 1 MG TAB PO PRN (21:12)
--- NOTE | 2020-05-20 22:24 | P.EN ---
U notified to transfer care to dr Cummins who is this patient primary care physician , he cared for this patient as an inpatient from 05/18-05/19
[2020-05-21] MEDS: traMADol 50 MG TAB PO PRN ×2 (05:42→11:48)
[2020-05-21 07:39] LABS: Basophils % (A) 1 %; Eosinophils # (A) 0.3 k/uL (0-0.7); Eosinophils % (A) 6 %; HCT 38.5 % (34.0-46.0); HGB 12.6 gm/dL (11.4-16.0); Hypochromasia Slight; Lymphocytes # (A) 1.8 k/uL (1.0-4.8); Lymphocytes % (A) 42 %; MCH 30.4 pg (25.0-35.0); MCHC 32.6 g/dL (31.0-37.0); MCV 93.1 fL (80.0-100.0); Mean Platelet Volume 8.6; Monocytes # (A) 0.2 k/uL (0-1.0); Monocytes % (A) 4 %; Neutrophils % (A) 45 %; Platelet Count 242 k/uL (150-450); RBC 4.14 m/uL (3.80-5.40); RDW 13.9 % (11.5-15.5); WBC 4.3 k/uL (3.8-10.6)
[2020-05-21] MEDS: FLUTICASONE 50MCG/SPRAY NASAL 16GM EA NOSTRIL SCH (07:57)
[2020-05-21] MEDS: GABAPENTIN 300 MG CAP PO SCH ×2 (07:58→16:24)
[2020-05-21] MEDS: LORazepam 1 MG TAB PO PRN (07:58)
[2020-05-21] MEDS: buPROPion XL 150 MG TAB.ER.24H PO SCH ×2 (07:58→07:59)
[2020-05-21 08:43] LABS: ALT 16 U/L (4-34); AST 29 U/L (14-36); African American GFR (CKD) >90 (>60 ml/min/1.73 sqM); Alkaline Phosphatase 122 U/L (38-126); Anion Gap 13 mmol/L; Blood Urea Nitrogen 12 mg/dL (7-17); Calcium 9.7 mg/dL (8.4-10.2); Carbon Dioxide 15 mmol/L (22-30); Chloride 115 mmol/L (98-107); Glucose 95 mg/dL (74-99); Non-African American GFR(CKD) >90 (>60 ml/min/1.73 sqM); Potassium 4.6 mmol/L (3.5-5.1); Sodium 143 mmol/L (137-145); Total Bilirubin 0.4 mg/dL (0.2-1.3)
[2020-05-21] MEDS ORDERED: FLUoxetine HCL 20 MG CAP PO SCH (09:00)
[2020-05-21 09:52] LABS: Cholesterol 229 mg/dL (<200); HDL Cholesterol 56 mg/dL (40-60); LDL Cholesterol,Calculated 111 mg/dL (0-99); Triglycerides 312 mg/dL (<150)
[2020-05-21] MEDS: NORGESTIMATE ETHINYL ESTRADIOL PO SCH (10:16)
[2020-05-21] MEDS: hydrOXYzine HCL 10 MG TAB PO PRN (11:51)
[2020-05-21] MEDS ORDERED: OLANZapine 10 MG TAB PO ONE (14:00)
[2020-05-21] MEDS ORDERED: OLANZapine 10 MG VIAL IM STA (14:03)
[2020-05-21] MEDS: IBUPROFEN 800 MG TAB PO SCH (16:23)
[2020-05-21] MEDS: ACETAMINOPHEN TAB 325 MG TAB PO PRN (16:24)
[2020-05-21 17:13] LABS: Hemoglobin A1C 5.2 % (4.0-6.0)
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
--- NOTE | 2020-05-21 18:02 | P.CNOR ---
History of Present Illness - HPI Consult date: 05/21/20 Consult reason: other (Post op left tib/fib IM bruno and ORIF) History of present illness: The patient is a 29 y/o female who was admitted to the Mental Health Unit at [facility] for suicidal ideation. She recently underwent an ORIF and IM rodding of the left tibia and fibula by Dr. Ho at [facility]. The patient was evaluated in the mental health unit in her room this afternoon. She recently received medication and is very sleepy at this time. She does arouse to voice but quickly falls back to sleep. The patient currently has sutures in place without signs or symptoms of infection. No splint or dressings are in place to the left leg and the patient will not tell me when she took everything off the leg after surgery. She is currently non-weightbearing to the left lower extremity according to the patient. She states minimal pain the left leg at this time. Review of Systems ROS unobtainable: due to mental status Past Medical History Additional Past Medical History / Comment(s): migraines History of Any Multi-Drug Resistant Organisms: None Reported Past Surgical History: Ear Surgery, Orthopedic Surgery Additional Past Surgical History / Comment(s): bilateral ankle, mastoidectomy Past Anesthesia/Blood Transfusion Reactions: No Reported Reaction Past Psychological History: Anxiety, Bipolar Smoking Status: Former smoker Past Alcohol Use History: None Reported Past Drug Use History: Marijuana Medications and Allergies Home Medications Medication Instructions Recorded Confirmed Type Fenofibrate Nanocrystallized 48 mg PO DAILY 03/24/20 05/20/20 History [Fenofibrate] Fluticasone Nasal Transfer [Flonase 1 spray EA NOSTRIL BID 03/24/20 05/20/20 History Nasal Transfer] Lurasidone HCl [Latuda] 60 mg PO HS 03/24/20 05/20/20 History Norgestimate-Ethinyl Estradiol 1 tab PO DAILY 03/24/20 05/20/20 History [Oru-Vd-Xelunban Tablet] QUEtiapine FUMARATE [SEROquel] 150 mg PO HS 03/24/20 05/20/20 History buPROPion XL [Wellbutrin XL] 150 mg PO DAILY 03/24/20 05/20/20 History hydrOXYzine HCL [Atarax] 10 mg PO TID PRN 03/24/20 05/20/20 History Butalb/Acetaminophen/Caffeine 1 tab PO Q6HR PRN 05/17/20 05/20/20 History [Fioricet 50-300-40 mg Capsule] FLUoxetine HCL [PROzac] 20 mg PO DAILY 05/17/20 05/20/20 History Gabapentin 600 mg PO TID 05/17/20 05/20/20 History Omeprazole Magnesium 20 mg PO DAILY 05/17/20 05/20/20 History diazePAM [Diazepam] 10 mg PO BID PRN 05/17/20 05/20/20 History oxyCODONE HCL 5 mg PO Q6H PRN 05/17/20 05/20/20 History traMADol HCL 50 mg PO Q6H PRN 05/20/20 05/20/20 History Allergies Allergy/AdvReac Type Severity Reaction Status Date / Time No Known Allergies Allergy Verified 05/20/20 06:41 Physical Examination The patient is a 29 y/o female in no acute distress. She is lethargic but easy to arouse and falls back to sleep easily. Exam of the left lower extremity reveals multiple incision to the left ankle and lower leg. One incision is present to the distal thigh. All incision are healing well without signs or symptoms of infection. Sutures remain in place. She is able to lift her own leg without difficulty. She is able to wiggle her toes without significant pain. Calf is soft and non-tender. Neurological and circulatory status is intact. Results X-rays from previous recent hospitalization reveal hardware in good position and fractures are in good alignment. Not much healing noted to fractures at this time. - Labs Labs: Abnormal Lab Results - Last 24 Hours (Table) 05/21/20 Range/Units 07:11 Chloride 115 H (98-107) mmol/L Carbon Dioxide 15 L (22-30) mmol/L Triglycerides 312 H (<150) mg/dL Cholesterol 229 H (<200) mg/dL LDL Cholesterol, Calc 111 H (0-99) mg/dL H & H 05/21/20 Range/Units 07:11 Hgb 12.6 (11.4-16.0) gm/dL Hct 38.5 (34.0-46.0) % Result Diagrams: 05/21/20 07:11 05/21/20 07:11 Assessment and Plan (1) Mood disorder Current Visit: Yes Status: Acute Code(s): F39 - UNSPECIFIED MOOD [AFFECTIVE] DISORDER SNOMED Code(s): 39675176 (2) Closed fracture of shaft of left tibia and fibula Current Visit: No Status: Acute Code(s): S82.202A - UNSP FRACTURE OF SHAFT OF LEFT TIBIA, INIT FOR CLOS FX; S82.402A - UNSP FRACTURE OF SHAFT OF LEFT FIBULA, INIT FOR CLOS FX SNOMED Code(s): 537476084 Plan: The clinical and x-ray findings were discussed with the patient and the nursing staff. We recommend application of a short leg splint for support at this time. The splint was applied at the bedside this afternoon without difficulty. Continue neurovascular checks of the left lower extremity every shift. Continue Tylenol and Motrin for pain as needed. If the patient takes off the guillermo wrap or tampers with the splint, the nursing staff will call us to re-apply or find an alternative. Continue non-weightbearing to the left lower extremity. The patient will follow up with Dr. Ho upon discharge from the hospital for further follow up postoperative care by the orthopedic trauma team at [facility]. We will sign off at this time.
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
[2020-05-22] MEDS: FLUTICASONE 50MCG/SPRAY NASAL 16GM EA NOSTRIL SCH ×2 (09:20→21:42)
[2020-05-22] MEDS: NORGESTIMATE ETHINYL ESTRADIOL PO SCH (09:21)
[2020-05-22] MEDS: PANTOPRAZOLE 40 MG TABLET PO SCH (09:21)
[2020-05-22] MEDS: GABAPENTIN 300 MG CAP PO SCH ×3 (09:22→21:42)
[2020-05-22] MEDS: IBUPROFEN 800 MG TAB PO SCH ×3 (09:22→21:55)
[2020-05-22] MEDS: ACETAMINOPHEN TAB 325 MG TAB PO PRN (10:34)
[2020-05-22] MEDS: OLANZapine 5 MG TAB PO SCH ×2 (11:44→16:28)
[2020-05-22] MEDS: hydrOXYzine HCL 10 MG TAB PO PRN (11:45)
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
[2020-05-22] MEDS: LURASIDONE 20 MG TAB PO SCH (21:42)
[2020-05-22] MEDS: FLUoxetine HCL 20 MG CAP PO SCH (21:42)
[2020-05-23] MEDS: IBUPROFEN 800 MG TAB PO SCH ×5 (07:02→21:02)
[2020-05-23] MEDS: OLANZapine 5 MG TAB PO SCH ×3 (08:00→20:10)
[2020-05-23] MEDS: FLUTICASONE 50MCG/SPRAY NASAL 16GM EA NOSTRIL SCH ×2 (08:00→20:51)
[2020-05-23] MEDS: GABAPENTIN 300 MG CAP PO SCH ×4 (08:00→21:00)
[2020-05-23] MEDS: PANTOPRAZOLE 40 MG TABLET PO SCH (08:00)
[2020-05-23] MEDS: NORGESTIMATE ETHINYL ESTRADIOL PO SCH (08:01)
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
[2020-05-23] MEDS: FLUoxetine HCL 20 MG CAP PO SCH (13:57)
[2020-05-23] MEDS: LURASIDONE 20 MG TAB PO SCH (13:58)
[2020-05-23] MEDS ORDERED: LOPERAMIDE 2 MG CAP PO PRN (18:22)
[2020-05-23] MEDS: hydrOXYzine pamoate 25 MG CAP PO PRN (18:56)
[2020-05-24] MEDS: FLUTICASONE 50MCG/SPRAY NASAL 16GM EA NOSTRIL SCH ×2 (08:19→20:04)
[2020-05-24] MEDS: IBUPROFEN 800 MG TAB PO SCH ×3 (08:20→20:04)
[2020-05-24] MEDS: OLANZapine 5 MG TAB PO SCH ×3 (08:20→20:05)
[2020-05-24] MEDS: LURASIDONE 20 MG TAB PO SCH (08:21)
[2020-05-24] MEDS: PANTOPRAZOLE 40 MG TABLET PO SCH (08:21)
[2020-05-24] MEDS: FLUoxetine HCL 20 MG CAP PO SCH (08:21)
[2020-05-24] MEDS: GABAPENTIN 300 MG CAP PO SCH ×3 (08:21→20:05)
[2020-05-24] MEDS: NORGESTIMATE ETHINYL ESTRADIOL PO SCH (08:21)
--- NOTE | 2020-05-24 10:03 | P.PN ---
Progress Note - Text Progress Note Date: 05/24/20 Interval history: Patient was seen wandering the hallways and was directable and agreeable to speak with underwriter solicitation director. Patient expresses that she is feeling better. She reports that she is not suicidal or homicidal. She states that what she was experiencing was due to her drug use prior to this admission and she no longer feels that way. She says that she has some anxiety as she will be attending court tomorrow. At this time patient denies any suicidal or homicidal ideations intent or plan. Denies any Auditory or visual hallucinations. Patient denies any side effects from the medications and has been compliant with meds. Mental status exam: General Appearance: Patient appears to be stated age is alert, directable, and cooperative. Ambulates via wheelchair. Behavior: No agitated behavior. Patient is calm and directable Speech: Patient's speech is fluent and nonpressured. Mood/Affect: Mood is improving mildly, affect is congruent and constricted. Suicidality/Homicidality: Patient denies having any suicidal or homicidal ideation intent or plan. Perceptions: Patient denies any auditory or visual hallucinations. Though content/process: There is no evidence of any delusional thought content and thought process is linear and goal-directed. Memory and concentration: AOX3, grossly intact for the purposes of this session Judgment and insight: improving mildly Assessment/Plan: Continue with current diagnosis. Patient continues to meet criteria for inpatient psychiatric admission for symptom stabilization and safety. Patient's medications have been moved to the a.m. but will be continued on her current psychotropic medication regimen. Monitor for medication compliance and for any psychotropic medication side effects. Will continue to monitor ongoing response to treatment. Encouraged participation in milieu.
[2020-05-24 11:37] VITALS: RESP 20
[2020-05-24] MEDS: hydrOXYzine pamoate 25 MG CAP PO PRN (14:19)
[2020-05-25] MEDS: OLANZapine 5 MG TAB PO SCH ×3 (08:46→20:38)
[2020-05-25] MEDS: FLUTICASONE 50MCG/SPRAY NASAL 16GM EA NOSTRIL SCH ×3 (08:47→20:38)
[2020-05-25] MEDS: LURASIDONE 20 MG TAB PO SCH ×2 (08:48→10:45)
[2020-05-25] MEDS: FLUoxetine HCL 20 MG CAP PO SCH ×2 (08:48→10:45)
[2020-05-25] MEDS: IBUPROFEN 800 MG TAB PO SCH ×3 (08:49→17:25)
[2020-05-25] MEDS: GABAPENTIN 300 MG CAP PO SCH ×3 (08:49→20:38)
[2020-05-25] MEDS: PANTOPRAZOLE 40 MG TABLET PO SCH (08:49)
[2020-05-25] MEDS: NORGESTIMATE ETHINYL ESTRADIOL PO SCH (08:50)
--- NOTE | 2020-05-25 10:05 | P.PN ---
Progress Note - Text Progress Note Date: 05/25/20 Interval history: Patient was seen wandering the hallways near the nurse's desk in her wheelchair and was directable and agreeable to speak with sign writer letterer or painter. Patient states that she is mildly improving with regards to her mood at this point. She claims that "the real reason I'm in here is because of drug abuse and I know what I need to do". She goes on to explain that she needs to go to rehab once she is done following up with the orthopedic surgeon. Patient was fairly guarded about her injury to her leg. She states that she is having trouble going to the bathroom on the unit. Patient was preoccupied with discharge. She claims that she is having anxiety on the unit. She claims that she has been taking Vistaril as needed which is helping. She reports that she is not suicidal or homicidal. At this time patient denies any suicidal or homicidal ideations intent or plan. Denies any Auditory or visual hallucinations. Patient claims that she is feeling somewhat lethargic during the day and attributes it to Zyprexa. Patient claims that she is able to sleep approximately 6 hours last night. Mental status exam: General Appearance: Patient appears to be stated age is alert, directable, and cooperative. Ambulates via wheelchair. Behavior: No agitated behavior. Patient is calm and directable Speech: Patient's speech is fluent and nonpressured. Mood/Affect: Mood is improving mildly, affect is congruent and constricted. Suicidality/Homicidality: Patient denies having any suicidal or homicidal ideation intent or plan. Perceptions: Patient denies any auditory or visual hallucinations. Though content/process: There is no evidence of any delusional thought content and thought process is linear and goal-directed. Preoccupied with discharge and minimizing her hospitalization. Memory and concentration: AOX3, grossly intact for the purposes of this session Judgment and insight: improving mildly Assessment/Plan: Continue with current diagnosis. Patient continues to meet criteria for inpatient psychiatric admission for symptom stabilization and safety. Decreased patient's Zyprexa to 5 mg twice a day due to oversedation. Continue with the other current psychotropic medication regimen as ordered. Monitor for medication compliance and for any psychotropic medication side effects. Will continue to monitor ongoing response to treatment. Encouraged participation in milieu. Patient will need to be given access line number for rehab. Patient will be following up with orthopedic surgery Dr. Ho in [facility] upon discharge
[2020-05-25] MEDS: QUEtiapine 100 MG TAB PO SCH (10:45)
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
[2020-05-26] MEDS: IBUPROFEN 800 MG TAB PO SCH ×2 (10:33→14:18)
[2020-05-26] MEDS: GABAPENTIN 300 MG CAP PO SCH (10:34)
[2020-05-26] MEDS: PANTOPRAZOLE 40 MG TABLET PO SCH (10:34)
[2020-05-26] MEDS: FLUoxetine HCL 20 MG CAP PO SCH (10:34)
[2020-05-26] MEDS: LURASIDONE 20 MG TAB PO SCH (10:34)
[2020-05-26] MEDS: FLUTICASONE 50MCG/SPRAY NASAL 16GM EA NOSTRIL SCH (10:34)
[2020-05-26] MEDS: NORGESTIMATE ETHINYL ESTRADIOL PO SCH (10:35)
[2020-05-26] MEDS: OLANZapine 5 MG TAB PO SCH (10:37)
[2020-05-26 12:33] VITALS: BP 107/53; PULSE 75; TEMP 98.4
[2020-05-26] MEDS ORDERED: OLANZapine 10 MG TAB PO SCH (21:00)
== END 2020-05-26 13:55 | disposition home or self-care (01) | DRG 885 ==
LOC: EC 04:06 → 3MHU 18:09
PROVIDERS: ADMIT Psychiatry & Neurology Psychiatry; ATTEND Psychiatry & Neurology Psychiatry
DX: F31.4 Bipolar disorder, current episode depressed, severe, without psychotic features (principal); R45.851 Suicidal ideations; F11.23 Opioid dependence with withdrawal; F13.230 Sedative, hypnotic or anxiolytic dependence with withdrawal, uncomplicated; E78.5 Hyperlipidemia, unspecified; G43.909 Migraine, unspecified, not intractable, without status migrainosus; F41.0 Panic disorder [episodic paroxysmal anxiety]; E78.00 Pure hypercholesterolemia, unspecified; S82.302D Unspecified fracture of lower end of left tibia, subsequent encounter for closed fracture with routine healing; S82.832D Other fracture of upper and lower end of left fibula, subsequent encounter for closed fracture with routine healing; G47.00 Insomnia, unspecified; R45.87 Impulsiveness; W10.9XXA Fall (on) (from) unspecified stairs and steps, initial encounter; Z79.899 Other long term (current) drug therapy; Z87.891 Personal history of nicotine dependence; Z91.410 Personal history of adult physical and sexual abuse; Z98.890 Other specified postprocedural states; Z96.7 Presence of other bone and tendon implants
CPT/HCPCS: 80053; 80061; 80306; 81003; 81025; 82075; 83036; 84443; 85025; 96372; 99285

== ENCOUNTER 2020-07-23 10:31 | Inpatient (IN) | payer OTHER ==
--- NOTE | 2020-07-23 11:01 | ED ---
General Adult HPI - General Chief complaint: Altered Mental Status Stated complaint: AMS Time Seen by Provider: 07/23/20 10:44 Source: patient, RN notes reviewed Mode of arrival: ambulatory Limitations: no limitations - History of Present Illness Initial comments: 29-year-old female with a past medical history of migraines, bipolar disorder presents to the emergency room for a chief complaint of altered mental status. Patient reports she took her Klonopin which is 2 mg today. Patient started on this last week. Patient's at bedside thinks that her meds are too high. Patient denies taking any other medications today. Patient denies any weakness. Patient tearfully states she is very anxious and depressed. When asked if she is suicidal she continuously says she "does not want to go upstairs." Patient has no other complaints at this time including shortness of breath, chest pain, abdominal pain, nausea or vomiting, headache, or visual changes. - Related Data Home Medications Medication Instructions Recorded Confirmed Fenofibrate Nanocrystallized 48 mg PO DAILY 03/24/20 07/23/20 [Fenofibrate] Fluticasone Nasal [place] [Flonase 1 spray EA NOSTRIL BID 03/24/20 07/23/20 Nasal [place]] Norgestimate-Ethinyl Estradiol 1 tab PO DAILY 03/24/20 07/23/20 [Rty-Cf-Etzlmuri Tablet] Butalb/Acetaminophen/Caffeine 1 tab PO Q6HR PRN 05/17/20 07/23/20 [Fioricet 50-300-40 mg Capsule] OLANZapine [ZyPREXA Zydis] 15 mg PO DAILY 07/23/20 07/23/20 Phentermine HCl [Adipex-P] 37.5 mg PO DAILY 07/23/20 07/23/20 Pregabalin [Lyrica] 100 mg PO TID 07/23/20 07/23/20 cloNIDine HCL [Catapres] 0.2 mg PO BID 07/23/20 07/23/20 clonazePAM [KlonoPIN] 2 mg PO TID 07/23/20 07/23/20 Previous Rx's Medication Instructions Recorded Acetaminophen Tab [Tylenol] 650 mg PO Q4HR PRN 30 Days tab 05/26/20 FLUoxetine HCL [PROzac] 20 mg PO DAILY 30 Days cap 05/26/20 Ibuprofen [Motrin] 800 mg PO TID-W/MEALS 30 Days tab 05/26/20 Lurasidone [Latuda] 60 mg PO DAILY 30 Days tab 05/26/20 Pantoprazole [Protonix] 40 mg PO AC-BRKFST 30 Days 05/26/20 tablet. hydrOXYzine pamoate [Vistaril] 50 mg PO QID PRN 30 Days cap 05/26/20 Allergies Allergy/AdvReac Type Severity Reaction Status Date / Time No Known Allergies Allergy Verified 07/23/20 12:04 Review of Systems ROS Statement: Those systems with pertinent positive or pertinent negative responses have been documented in the HPI. ROS Other: All systems not noted in ROS Statement are negative. Past Medical History Additional Past Medical History / Comment(s): migraines History of Any Multi-Drug Resistant Organisms: None Reported Past Surgical History: Ear Surgery, Orthopedic Surgery Additional Past Surgical History / Comment(s): bilateral ankle, mastoidectomy Past Anesthesia/Blood Transfusion Reactions: No Reported Reaction Past Psychological History: Anxiety, Bipolar, Depression Smoking Status: Former smoker Past Alcohol Use History: None Reported Past Drug Use History: Marijuana General Exam Limitations: no limitations General appearance: alert, in no apparent distress Head exam: Present: atraumatic, normocephalic, normal inspection Eye exam: Present: normal appearance, PERRL, EOMI. Absent: scleral icterus, conjunctival injection, periorbital swelling ENT exam: Present: normal exam, mucous membranes moist Neck exam: Present: normal inspection, full ROM. Absent: tenderness Respiratory exam: Present: normal lung sounds bilaterally. Absent: respiratory distress, wheezes, rales, rhonchi, stridor Cardiovascular Exam: Present: regular rate, normal rhythm, normal heart sounds. Absent: systolic murmur, diastolic murmur, rubs, gallop, clicks GI/Abdominal exam: Present: soft, normal bowel sounds. Absent: distended, tenderness, guarding, rebound, rigid Neurological exam: Present: alert, oriented X3 (Patient oriented to person place and time) Expanded Patient oriented to: Present: person, place Cranial nerves: EOM's Intact: Normal, Tongue Deviation: Normal, Nystagmus: Normal, Facial Sensation: Normal Motor strength exam: RUE: 5, LUE: 5, RLE: 5, LLE: 5 Eye Response: (4) open spontaneously Motor Response: (6) obeys commands Verbal Response: (5) oriented Pablo Total: 15 Course Vital Signs 07/23/20 07/23/20 10:33 12:30 Temperature 98 F Pulse Rate 86 74 Respiratory 18 16 Rate Blood Pressure 123/72 106/70 O2 Sat by Pulse 97 99 Oximetry - Reevaluation(s) Reevaluation #1: 07/23/20 11:20 Past reports reviewed. Patient was recently admitted 2 months ago for opioid overdose. EKG Findings - EKG Comments: EKG Findings:: Normal sinus rhythm, ventricular rate 70, SC int 142, QTC 438 Medical Decision Making - Medical Decision Making 29-year-old female with a past psychiatric history including opioid overdose in the past couple months and suicidal ideation presents for altered mental status. Patient's boyfriend reports she has been slurring her words and not acting normal. Patient does admit to taking Klonopin this morning but denies taking other medications. Throughout her ER stay she became increasingly lethargic but continued to protect her airway. She remained arousable. CBC CMP unremarkable. Tylenol salicylates and alcohol are negative. CT brain shows no acute intracranial hemorrhage or midline shift. No significant change from most recent prior in 2018. Chest x-ray shows no acute process. EKG shows a normal sinus rhythm, ventricular rate 70. Drug screen is positive for barbiturates, amphetamines and benzos. Patient likely overdose. Patient is questionably suicidal. She is tearful at baseline talking about her depression however when asked if suicidal she reports she does not want to go upstairs. She will be medically admitted with psychiatry consultation. Discussed case with Dr. Ramirez who will discuss this with Dr. Cummins. - Lab Data Result diagrams: 07/23/20 10:59 07/23/20 10:59 Lab Results 07/23/20 07/23/20 07/23/20 Range/Units 10:59 10:59 10:59 WBC 8.3 (3.8-10.6) k/uL RBC 4.78 (3.80-5.40) m/uL Hgb 13.1 (11.4-16.0) gm/dL Hct 41.0 (34.0-46.0) % MCV 85.8 D (80.0-100.0) fL MCH 27.3 (25.0-35.0) pg MCHC 31.8 (31.0-37.0) g/dL RDW 13.3 (11.5-15.5) % Plt Count 344 (150-450) k/uL MPV 7.7 Neutrophils % 61 % Lymphocytes % 34 % Monocytes % 3 % Eosinophils % 1 % Basophils % 0 % Neutrophils # 5.0 (1.3-7.7) k/uL Lymphocytes # 2.8 (1.0-4.8) k/uL Monocytes # 0.3 (0-1.0) k/uL Eosinophils # 0.1 (0-0.7) k/uL Basophils # 0.0 (0-0.2) k/uL Sodium 139 (137-145) mmol/L Potassium 4.3 (3.5-5.1) mmol/L Chloride 106 (98-107) mmol/L Carbon Dioxide 24 (22-30) mmol/L Anion Gap 9 mmol/L BUN 12 (7-17) mg/dL Creatinine 0.81 (0.52-1.04) mg/dL Est GFR (CKD-EPI)AfAm >90 (>60 ml/min/1.73 sqM) Est GFR (CKD-EPI)NonAf >90 (>60 ml/min/1.73 sqM) Glucose 101 H (74-99) mg/dL Calcium 9.5 (8.4-10.2) mg/dL Total Bilirubin 0.4 (0.2-1.3) mg/dL AST 20 (14-36) U/L ALT 10 (4-34) U/L Alkaline Phosphatase 103 (38-126) U/L Total Protein 7.6 (6.3-8.2) g/dL Albumin 4.3 (3.5-5.0) g/dL Urine Color Yellow Urine Appearance Cloudy H (Clear) Urine pH 6.5 (5.0-8.0) Ur Specific [place] 1.029 (1.001-1.035) Urine Protein Trace H (Negative) Urine Glucose (UA) Negative (Negative) Urine Ketones Negative (Negative) Urine Blood Negative (Negative) Urine Nitrite Negative (Negative) Urine Bilirubin Negative (Negative) Urine Urobilinogen <2.0 (<2.0) mg/dL Ur Leukocyte Esterase Small H (Negative) Urine RBC 1 (0-5) /hpf Urine WBC 4 (0-5) /hpf Ur Squamous Epith Cells 3 (0-4) /hpf Amorphous Sediment Rare H (None) /hpf Urine Bacteria Rare H (None) /hpf Hyaline Casts 1 (0-2) /lpf Urine Mucus Rare H (None) /hpf Urine HCG, Qual (Not Detectd) Salicylates <1.0 mg/dL Urine Opiates Screen Not Detected (NotDetected) Ur Oxycodone Screen Not Detected (NotDetected) Urine Methadone Screen Not Detected (NotDetected) Ur Propoxyphene Screen Not Detected (NotDetected) Acetaminophen 10.5 ug/mL Ur Barbiturates Screen Detected H (NotDetected) U Tricyclic Antidepress Not Detected (NotDetected) Ur Phencyclidine Scrn Not Detected (NotDetected) Ur Amphetamines Screen Detected H (NotDetected) U Methamphetamines Scrn Not Detected (NotDetected) U Benzodiazepines Scrn Detected H (NotDetected) Urine Cocaine Screen Not Detected (NotDetected) U Marijuana (THC) Screen Not Detected (NotDetected) Serum Alcohol <10 mg/dL 07/23/20 Range/Units 10:59 WBC (3.8-10.6) k/uL RBC (3.80-5.40) m/uL Hgb (11.4-16.0) gm/dL Hct (34.0-46.0) % MCV (80.0-100.0) fL MCH (25.0-35.0) pg MCHC (31.0-37.0) g/dL RDW (11.5-15.5) % Plt Count (150-450) k/uL MPV Neutrophils % % Lymphocytes % % Monocytes % % Eosinophils % % Basophils % % Neutrophils # (1.3-7.7) k/uL Lymphocytes # (1.0-4.8) k/uL Monocytes # (0-1.0) k/uL Eosinophils # (0-0.7) k/uL Basophils # (0-0.2) k/uL Sodium (137-145) mmol/L Potassium (3.5-5.1) mmol/L Chloride (98-107) mmol/L Carbon Dioxide (22-30) mmol/L Anion Gap mmol/L BUN (7-17) mg/dL Creatinine (0.52-1.04) mg/dL Est GFR (CKD-EPI)AfAm (>60 ml/min/1.73 sqM) Est GFR (CKD-EPI)NonAf (>60 ml/min/1.73 sqM) Glucose (74-99) mg/dL Calcium (8.4-10.2) mg/dL Total Bilirubin (0.2-1.3) mg/dL AST (14-36) U/L ALT (4-34) U/L Alkaline Phosphatase (38-126) U/L Total Protein (6.3-8.2) g/dL Albumin (3.5-5.0) g/dL Urine Color Urine Appearance (Clear) Urine pH (5.0-8.0) Ur Specific [place] (1.001-1.035) Urine Protein (Negative) Urine Glucose (UA) (Negative) Urine Ketones (Negative) Urine Blood (Negative) Urine Nitrite (Negative) Urine Bilirubin (Negative) Urine Urobilinogen (<2.0) mg/dL Ur Leukocyte Esterase (Negative) Urine RBC (0-5) /hpf Urine WBC (0-5) /hpf Ur Squamous Epith Cells (0-4) /hpf Amorphous Sediment (None) /hpf Urine Bacteria (None) /hpf Hyaline Casts (0-2) /lpf Urine Mucus (None) /hpf Urine HCG, Qual Not Detected (Not Detectd) Salicylates mg/dL Urine Opiates Screen (NotDetected) Ur Oxycodone Screen (NotDetected) Urine Methadone Screen (NotDetected) Ur Propoxyphene Screen (NotDetected) Acetaminophen ug/mL Ur Barbiturates Screen (NotDetected) U Tricyclic Antidepress (NotDetected) Ur Phencyclidine Scrn (NotDetected) Ur Amphetamines Screen (NotDetected) U Methamphetamines Scrn (NotDetected) U Benzodiazepines Scrn (NotDetected) Urine Cocaine Screen (NotDetected) U Marijuana (THC) Screen (NotDetected) Serum Alcohol mg/dL Disposition Clinical Impression: Benzodiazepine overdose, Altered mental status Disposition: ADMITTED IP TO THIS HOSP Is patient prescribed a controlled substance at d/c from ED?: No Referrals: Nilesh Cummins MD [Primary Care Provider] - 1-2 days Time of Disposition: 13:41
[2020-07-23 11:22] LABS: Basophils % (A) 0 %; Eosinophils # (A) 0.1 k/uL (0-0.7); Eosinophils % (A) 1 %; HGB 13.1 gm/dL (11.4-16.0); Lymphocytes # (A) 2.8 k/uL (1.0-4.8); Lymphocytes % (A) 34 %; MCH 27.3 pg (25.0-35.0); MCHC 31.8 g/dL (31.0-37.0); MCV 85.8 fL (80.0-100.0); Mean Platelet Volume 7.7; Monocytes # (A) 0.3 k/uL (0-1.0); Monocytes % (A) 3 %; Neutrophils % (A) 61 %; Platelet Count 344 k/uL (150-450); RBC 4.78 m/uL (3.80-5.40); RDW 13.3 % (11.5-15.5); WBC 8.3 k/uL (3.8-10.6)
[2020-07-23 11:26] LABS: ALT 10 U/L (4-34); AST 20 U/L (14-36); Acetaminophen 10.5 ug/mL; African American GFR (CKD) >90 (>60 ml/min/1.73 sqM); Albumin 4.3 g/dL (3.5-5.0); Alcohol <10 mg/dL; Alkaline Phosphatase 103 U/L (38-126); Anion Gap 9 mmol/L; Blood Urea Nitrogen 12 mg/dL (7-17); Calcium 9.5 mg/dL (8.4-10.2); Carbon Dioxide 24 mmol/L (22-30); Chloride 106 mmol/L (98-107); Glucose 101 mg/dL (74-99); Non-African American GFR(CKD) >90 (>60 ml/min/1.73 sqM); Potassium 4.3 mmol/L (3.5-5.1); Salicylate <1.0 mg/dL; Sodium 139 mmol/L (137-145); Total Bilirubin 0.4 mg/dL (0.2-1.3); Total Protein 7.6 g/dL (6.3-8.2)
--- NOTE | 2020-07-23 11:49 | CT ---
EXAMINATION TYPE: CT brain wo con DATE OF EXAM: 07/23/2020 COMPARISON: CT brain October 14, 2017 HISTORY: Altered mental status CT DLP: 1080.4 mGycm. Automated Exposure Control for Dose Reduction was Utilized. TECHNIQUE: CT scan of the head is performed without contrast. FINDINGS: There is no acute intracranial hemorrhage, mass effect, or midline shift identified. The ventricles and sulci are within normal limits in size. [place]-white matter differentiation is maintain ed. Evidence of bilateral temporal surgery is redemonstrated. The globes are intact and the visualize d sinuses are clear. IMPRESSION: No acute intracranial hemorrhage or midline shift is seen. No significant change from mo st recent prior.
--- NOTE | 2020-07-23 11:53 | XR ---
EXAMINATION TYPE: XR chest 2V DATE OF EXAM: 07/23/2020 COMPARISON: Chest CT March 24, 2020 HISTORY: Chest pain. TECHNIQUE: Frontal and lateral views of the chest are obtained. FINDINGS: There is no focal air space opacity, pleural effusion, or pneumothorax seen. The cardiac silhouette size is within normal limits. Underlying scoliotic curvature or more likely positioning no jazmine. IMPRESSION: No acute process.
[2020-07-23 12:59] LABS: Amorphous Sediment,Urine Rare /hpf; Appearance,Urine Cloudy (Clear); Bacteria,Urine Rare /hpf; Bilirubin,Urine Negative (Negative); Blood,Urine Negative (Negative); Color,Urine Yellow; Glucose,Urine (UA) Negative (Negative); Hyaline Casts,Urine 1 /lpf (0-2); Ketones,Urine Negative (Negative); Leukocyte Esterase,Urine Small (Negative); Mucus,Urine Rare /hpf; Nitrite,Urine Negative (Negative); PH, Urine 6.5 (5.0-8.0); Protein,Urine Trace (Negative); RBC,Urine 1 /hpf (0-5); Specific Gravity,Urine 1.029 (1.001-1.035); Squamous Epithelial Cell,Urine 3 /hpf (0-4); Urobilinogen,Urine <2.0 mg/dL (<2.0); WBC,Urine 4 /hpf (0-5)
[2020-07-23 13:15] LABS: Urn Cannabinoid Scrn Not Detected (NotDetected)
[2020-07-23 13:16] LABS: Amphetamine Screen,Urine Detected (NotDetected); Barbiturate Screen,Urine Detected (NotDetected); Benzodiazepines Screen,Urine Detected (NotDetected); Cocaine Screen,Urine Not Detected (NotDetected); Methadone Screen, Urine Not Detected (NotDetected); Opiate Screen,Urine Not Detected (NotDetected); Oxycodone Screen, Urine Not Detected (NotDetected); Phencyclidine Screen,Urine Not Detected (NotDetected); Tricyclic Antidepressant,Urine Not Detected (NotDetected)
[2020-07-23] MEDS ORDERED: NALOXONE 0.4 MG/ML 1 ML VIAL IV PRN (13:42)
--- NOTE | 2020-07-23 14:27 | ED ---
Medical Decision Making - Medical Decision Making Patient was initially put in restraints at 1415 because she was punching staff, trying to take out her IV, trying to leave the hospital. Concern for suicidal thoughts given patient tearfully states she does not want to go upstairs when asked. Will not deny suicidal thoughts. I did not feel it was safe for patient to be allowed to leave the hospital with suicidal thoughts and patient cannot be medically cleared at that time as she was at baseline. This was discussed with Dr. Ramirez who recommended that I petitioned the patient which was completed. Patient was held in the ER until a bed could be obtained. Restraints were discontinued for patient to eat and did well for a time however again attempted to leave the emergency room and was physically aggressive to staff endangering the safety of herself and others. Restraints were re-initited. Patient was taken to the floor - Lab Data Result diagrams: 07/23/20 10:59 07/23/20 10:59 Lab Results 07/23/20 07/23/20 07/23/20 Range/Units 10:59 10:59 10:59 WBC 8.3 (3.8-10.6) k/uL RBC 4.78 (3.80-5.40) m/uL Hgb 13.1 (11.4-16.0) gm/dL Hct 41.0 (34.0-46.0) % MCV 85.8 D (80.0-100.0) fL MCH 27.3 (25.0-35.0) pg MCHC 31.8 (31.0-37.0) g/dL RDW 13.3 (11.5-15.5) % Plt Count 344 (150-450) k/uL MPV 7.7 Neutrophils % 61 % Lymphocytes % 34 % Monocytes % 3 % Eosinophils % 1 % Basophils % 0 % Neutrophils # 5.0 (1.3-7.7) k/uL Lymphocytes # 2.8 (1.0-4.8) k/uL Monocytes # 0.3 (0-1.0) k/uL Eosinophils # 0.1 (0-0.7) k/uL Basophils # 0.0 (0-0.2) k/uL Sodium 139 (137-145) mmol/L Potassium 4.3 (3.5-5.1) mmol/L Chloride 106 (98-107) mmol/L Carbon Dioxide 24 (22-30) mmol/L Anion Gap 9 mmol/L BUN 12 (7-17) mg/dL Creatinine 0.81 (0.52-1.04) mg/dL Est GFR (CKD-EPI)AfAm >90 (>60 ml/min/1.73 sqM) Est GFR (CKD-EPI)NonAf >90 (>60 ml/min/1.73 sqM) Glucose 101 H (74-99) mg/dL Calcium 9.5 (8.4-10.2) mg/dL Total Bilirubin 0.4 (0.2-1.3) mg/dL AST 20 (14-36) U/L ALT 10 (4-34) U/L Alkaline Phosphatase 103 (38-126) U/L Total Protein 7.6 (6.3-8.2) g/dL Albumin 4.3 (3.5-5.0) g/dL Urine Color Yellow Urine Appearance Cloudy H (Clear) Urine pH 6.5 (5.0-8.0) Ur Specific [place] 1.029 (1.001-1.035) Urine Protein Trace H (Negative) Urine Glucose (UA) Negative (Negative) Urine Ketones Negative (Negative) Urine Blood Negative (Negative) Urine Nitrite Negative (Negative) Urine Bilirubin Negative (Negative) Urine Urobilinogen <2.0 (<2.0) mg/dL Ur Leukocyte Esterase Small H (Negative) Urine RBC 1 (0-5) /hpf Urine WBC 4 (0-5) /hpf Ur Squamous Epith Cells 3 (0-4) /hpf Amorphous Sediment Rare H (None) /hpf Urine Bacteria Rare H (None) /hpf Hyaline Casts 1 (0-2) /lpf Urine Mucus Rare H (None) /hpf Urine HCG, Qual (Not Detectd) Salicylates <1.0 mg/dL Urine Opiates Screen Not Detected (NotDetected) Ur Oxycodone Screen Not Detected (NotDetected) Urine Methadone Screen Not Detected (NotDetected) Ur Propoxyphene Screen Not Detected (NotDetected) Acetaminophen 10.5 ug/mL Ur Barbiturates Screen Detected H (NotDetected) U Tricyclic Antidepress Not Detected (NotDetected) Ur Phencyclidine Scrn Not Detected (NotDetected) Ur Amphetamines Screen Detected H (NotDetected) U Methamphetamines Scrn Not Detected (NotDetected) U Benzodiazepines Scrn Detected H (NotDetected) Urine Cocaine Screen Not Detected (NotDetected) U Marijuana (THC) Screen Not Detected (NotDetected) Serum Alcohol <10 mg/dL 07/23/20 Range/Units 10:59 WBC (3.8-10.6) k/uL RBC (3.80-5.40) m/uL Hgb (11.4-16.0) gm/dL Hct (34.0-46.0) % MCV (80.0-100.0) fL MCH (25.0-35.0) pg MCHC (31.0-37.0) g/dL RDW (11.5-15.5) % Plt Count (150-450) k/uL MPV Neutrophils % % Lymphocytes % % Monocytes % % Eosinophils % % Basophils % % Neutrophils # (1.3-7.7) k/uL Lymphocytes # (1.0-4.8) k/uL Monocytes # (0-1.0) k/uL Eosinophils # (0-0.7) k/uL Basophils # (0-0.2) k/uL Sodium (137-145) mmol/L Potassium (3.5-5.1) mmol/L Chloride (98-107) mmol/L Carbon Dioxide (22-30) mmol/L Anion Gap mmol/L BUN (7-17) mg/dL Creatinine (0.52-1.04) mg/dL Est GFR (CKD-EPI)AfAm (>60 ml/min/1.73 sqM) Est GFR (CKD-EPI)NonAf (>60 ml/min/1.73 sqM) Glucose (74-99) mg/dL Calcium (8.4-10.2) mg/dL Total Bilirubin (0.2-1.3) mg/dL AST (14-36) U/L ALT (4-34) U/L Alkaline Phosphatase (38-126) U/L Total Protein (6.3-8.2) g/dL Albumin (3.5-5.0) g/dL Urine Color Urine Appearance (Clear) Urine pH (5.0-8.0) Ur Specific [place] (1.001-1.035) Urine Protein (Negative) Urine Glucose (UA) (Negative) Urine Ketones (Negative) Urine Blood (Negative) Urine Nitrite (Negative) Urine Bilirubin (Negative) Urine Urobilinogen (<2.0) mg/dL Ur Leukocyte Esterase (Negative) Urine RBC (0-5) /hpf Urine WBC (0-5) /hpf Ur Squamous Epith Cells (0-4) /hpf Amorphous Sediment (None) /hpf Urine Bacteria (None) /hpf Hyaline Casts (0-2) /lpf Urine Mucus (None) /hpf Urine HCG, Qual Not Detected (Not Detectd) Salicylates mg/dL Urine Opiates Screen (NotDetected) Ur Oxycodone Screen (NotDetected) Urine Methadone Screen (NotDetected) Ur Propoxyphene Screen (NotDetected) Acetaminophen ug/mL Ur Barbiturates Screen (NotDetected) U Tricyclic Antidepress (NotDetected) Ur Phencyclidine Scrn (NotDetected) Ur Amphetamines Screen (NotDetected) U Methamphetamines Scrn (NotDetected) U Benzodiazepines Scrn (NotDetected) Urine Cocaine Screen (NotDetected) U Marijuana (THC) Screen (NotDetected) Serum Alcohol mg/dL Disposition Clinical Impression: Benzodiazepine overdose, Altered mental status Disposition: ADMITTED IP TO THIS HOSP Time of Disposition: 20:29 Procedures - Restraint - Face to Face Restraint Occurrence 1 Patient's Immediate Situation: Endangers self safety, Endangers others' safety, Endangers staff safety, Violent behavior Patient's Reaction to the Intervention: Uncooperative, Angry, Hostile, Belligerent, Aggressive, Combative Patient's Medical & Behavioral Condition: Awake, Alert, Agitated Need to Continue or Terminate Restraint or Seclusion: Continue Face to Face Eval of Restraint Date: 07/23/20 Face to Face Eval of Restraint Time: 14:30 Restraint Occurrence 2 Patient's Immediate Situation: Endangers self safety, Endangers others' safety Patient's Reaction to the Intervention: Uncooperative, Hostile, Belligerent, Aggressive, Combative, Resistive to care Need to Continue or Terminate Restraint or Seclusion: Continue Face to Face Eval of Restraint Date: 07/23/20 Face to Face Eval of Restraint Time: 18:01
[2020-07-23] MEDS: SODIUM CHLORIDE 0.9% 1,000 ML IV SCH (21:50)
[2020-07-24] MEDS: SODIUM CHLORIDE 0.9% 1,000 ML IV SCH ×2 (04:14→18:10)
[2020-07-24] MEDS ORDERED: LORazepam 2 MG/ML INJ IM PRN (04:46)
[2020-07-24] MEDS ORDERED: LORazepam 2 MG/ML INJ IV PRN (04:48)
[2020-07-24] MEDS ORDERED: LORazepam 2 MG/ML INJ ONE (04:55)
[2020-07-24] MEDS: HALOPERIDOL LACTATE 5 MG/ML 1 ML VIAL IM PRN ×2 (05:18→16:31)
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
[2020-07-24 15:16] VITALS: TEMP 98.4
[2020-07-24 15:18] VITALS: BP 116/78; PULSE 74; RESP 20
--- NOTE | 2020-07-24 19:36 | HP ---
HISTORY AND PHYSICAL CHIEF COMPLAINT: Lethargy and agitation. HISTORY OF PRESENT ILLNESS: This is another admission for this 29-year-old white female who has been undergoing a great deal of stress of late. Her children have been taken away from her and she is currently trying to cope. She is incessantly asking for sedation in terms of anxiolytics. She was brought into the emergency room lethargic, and it was expected that she had probably taken an excess. It was not clear if this was accidental or intentional. Review of systems is unobtainable. Past medical history, family history, and personal and social histories are all otherwise unremarkable or unchanged from her recent admitting and discharge summaries. PHYSICAL EXAMINATION: Blood pressure is 132/80 with a pulse of 90, respirations of 36, and she is afebrile. In general she appeared to be slightly overweight. She was agitated but still lethargic. Skin color was normal. Skin was warm and dry. Lymph nodes were not enlarged. Head, ears, eyes, nose, mouth and throat were normal. Neck veins were not distended. Thyroid was not enlarged. Chest was clear. Cardiac exam was normal. Abdomen was soft and nontender. The extremities were normal. IMPRESSION: 1. Obtundation secondary to excessive anxiolytics. 2. Major depression. 3. Possible suicide attempt. PLAN: 1. Bedrest. 2. IV fluids. 3. Psychiatry consult. 4. Suicide precautions. MMODL / IJN: [id number] /
--- NOTE | 2020-07-24 19:48 | PN ---
PROGRESS NOTE DATE OF SERVICE: 07/24/2020 CHIEF COMPLAINT: Major depression and overdose. HISTORY OF PRESENT ILLNESS: This lady has been extremely agitated. She will be seen by Psychiatry. PHYSICAL EXAMINATION: Chest is clear. Cardiac exam is normal. Abdomen is soft. IMPRESSION: 1. Drug overdose. 2. Major depression. PLAN: 1. Continue suicide precautions. 2. Psych consult. MMODL / IJN: [id number] /
--- NOTE | 2020-07-27 05:55 | DS ---
DISCHARGE SUMMARY DATE OF SERVICE: 07/24/2020 CHIEF COMPLAINT: Drug overdose. HISTORY OF PRESENT ILLNESS AND PHYSICAL EXAM: Details of this lady's history and physical can be found in the initial workup. LABORATORY STUDIES: While she was in the hospital she had laboratory studies, details of which can be found in the laboratory section of her chart. COURSE IN THE HOSPITAL: After admission she was placed on bedrest, on suicide precautions. She became more awake and alert as the effect of her overdose subsided. She was seen by Psychiatry and she was petitioned into the psych unit and transferred there on . FINAL DIAGNOSES: 1. Drug ingestion and overdose. 2. Substance abuse. 3. Major depression. OPERATIONS: None. CONSULTATIONS: Psychiatry. She is improved. MMODL / IJN: [id number] /
== END 2020-07-24 16:35 | DRG 918 ==
LOC: EC 10:31 → 5NMEDONC 13:36 → 4SSUR 13:56
PROVIDERS: ADMIT Family Medicine; ATTEND Family Medicine
DX: T42.4X1A Poisoning by benzodiazepines, accidental (unintentional), initial encounter (principal); R45.851 Suicidal ideations; F31.9 Bipolar disorder, unspecified; Z20.828 Contact with and (suspected) exposure to other viral communicable diseases; F41.9 Anxiety disorder, unspecified; R41.82 Altered mental status, unspecified; G43.909 Migraine, unspecified, not intractable, without status migrainosus; R45.1 Restlessness and agitation; Z79.1 Long term (current) use of non-steroidal anti-inflammatories (NSAID); Z79.3 Long term (current) use of hormonal contraceptives; Z79.899 Other long term (current) drug therapy; Z78.1 Physical restraint status; Z87.891 Personal history of nicotine dependence; Z91.5 Personal history of self-harm
CPT/HCPCS: 36415; 70450; 71046; 80053; 80306; 80320; 80329; 81001; 81025; 83520; 85025; 87635; 93005; 99285

== ENCOUNTER 2020-07-24 16:43 | Inpatient (IN) | payer MEDICAID ==
[2020-07-24] MEDS ORDERED: MAG HYDROX/AL HYDROX/SIMETH 30 ML CUP PO PRN (16:50)
[2020-07-24] MEDS ORDERED: ACETAMINOPHEN TAB 325 MG TAB PO PRN (16:50)
[2020-07-24] MEDS ORDERED: MAGNESIUM HYDROXIDE 2,400 MG/10 ML CUP PO PRN (16:50)
[2020-07-24] MEDS ORDERED: HALOPERIDOL LACTATE 5 MG/ML 1 ML VIAL IM PRN (16:54)
[2020-07-24] MEDS ORDERED: diphenhydrAMINE 50 MG CAP PO PRN (16:55)
[2020-07-24] MEDS ORDERED: hydrOXYzine HCL 50 MG/ML 1 ML VIAL IM PRN (16:56)
[2020-07-24] MEDS ORDERED: diphenhydrAMINE 50 MG/ML 1 ML VIAL IM PRN (16:57)
[2020-07-24] MEDS: hydrOXYzine HCL 50 MG/ML 1 ML VIAL IM SCH (21:42)
[2020-07-25] MEDS: hydrOXYzine HCL 50 MG/ML 1 ML VIAL IM SCH (08:26)
[2020-07-25 10:02] LABS: Cholesterol 194 mg/dL (<200); HDL Cholesterol 48 mg/dL (40-60); LDL Cholesterol,Calculated 108 mg/dL (0-99); Triglycerides 189 mg/dL (<150)
[2020-07-25] MEDS ORDERED: hydrOXYzine HCL 50 MG/ML 1 ML VIAL IM PRN (11:20)
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
[2020-07-25] MEDS ORDERED: VENLAFAXINE HCL ER 37.5 MG CAP PO SCH (21:00)
[2020-07-26 00:02] LABS: Hemoglobin A1C 5.4 % (4.0-6.0)
--- NOTE | 2020-07-26 12:22 | P.PN ---
Progress Note - Text Progress Note Date: 07/26/20 Interval history: Patient was seen wandering the hallways and was directable and agreeable to speak with lead technical writer. Patient is very tearful during this interview as she is requesting discharge that she may attend her classes to reunite with her children. She also reports that she really wants to see her substance use counselor and that it it is not beneficial for her to be admitted to an inpatient psychiatric unit. She is not reporting any suicidal or homicidal ideation, intention, and/or plan. She is denying any auditory or visual hallucinations. She reports no issues with sleep or appetite. She reports Effexor has not been effective for her in the past and is requesting that she be placed back on Prozac. Mental status exam: General Appearance: Patient appears to be stated age is alert, directable, and intermittently cooperative. Patient is tall and obese. Behavior: Patient is tearful throughout the interview. Psychomotor activity is elevated. Speech: Patient's speech is fluent and nonpressured. Mood/Affect: Mood is anxious and depressed, affect is congruent but expansive. Suicidality/Homicidality: Patient denies having any suicidal or homicidal ideation intent or plan. Perceptions: Patient denies any auditory or visual hallucinations. Though content/process: There is no evidence of any delusional thought content and thought process is linear and goal-directed. Memory and concentration: AOX3, grossly intact for the purposes of this session Judgment and insight: Very poor Assessment/Plan: Continue with current diagnosis. Patient continues to meet criteria for inpatient psychiatric admission for symptom stabilization and safety. We will change her Effexor to Prozac 40 mg by mouth daily. Will continue Vistaril as needed for anxiety. Monitor for medication compliance and for any psychotropic medication side effects. Will continue to monitor ongoing response to treatment. Encouraged participation in milieu.
[2020-07-26] MEDS: hydrOXYzine pamoate 25 MG CAP PO PRN (17:08)
--- NOTE | 2020-07-27 04:27 | CONS ---
CONSULTATION CHIEF COMPLAINT: Major depression. HISTORY OF PRESENT ILLNESS: This 29-year-old female's history can be found in her past medical records and her admission notes from the floor. She has been having extreme difficulty with life management issues, depression and substance overuse and abuse. Because she could not provide proper care, her children recently had been taken away which has added to her depression. REVIEW OF SYSTEMS: Review of systems unremarkable and noncontributory otherwise except for depression and fatigue. PHYSICAL EXAMINATION: Vital signs are normal. Head, ears, eyes, nose, mouth are normal. Chest is clear. Cardiac exam is normal. Abdomen is soft, nontender. Extremities are normal. IMPRESSION: 1. Major depression. 2. Substance abuse and overdose. RECOMMENDATIONS: None. MMODL / IJN: [id number] /
[2020-07-27] MEDS: FLUoxetine HCL 20 MG CAP PO SCH (08:24)
--- NOTE | 2020-07-27 11:15 | P.PN ---
Progress Note - Text Progress Note Date: 07/27/20 Interval History: Patient was seen wandering the hallways and was directable and agreeable to speak with proposal lead writer in the office. The patient expresses a strong desire for discharge. She states that "something just clicked and I know for sure that I have to stop using benzodiazepines and other substances." She is currently not reporting any suicidal or homicidal ideation, intention, and/or plan. She is not reporting any auditory or visual hallucinations. She has been in adherent with medications is not reporting any significant side effects. She denies any issues with sleep or appetite. She reports that she does not want to go to rehab but wants to focus on outpatient treatment so that she may attend her classes and reunite with her children. Mental Status Exam: General Appearance: Patient appears to be stated age is alert, directable, and cooperative. Patient is tall and obese. Behavior: Psychomotor activity is elevated, the patient is calm and composed throughout the interview. Fair eye contact. Speech: Patient's speech is fluent and nonpressured. Mood/Affect: Mood is feeling really good. Affect is euthymic with appropriate range. Suicidality/Homicidality: Patient denies having any suicidal or homicidal ideation intent or plan. Perceptions: Patient denies any auditory or visual hallucinations. Though content/process: There is no evidence of any delusional thought content and thought process is linear and goal-directed. Memory and concentration: AOX3, grossly intact for the purposes of this session Judgment and insight: Improving mildly Assessment Major depressive disorder Benzodiazepine abuse History of opioid abuse History of barbiturate abuse Plan: -Patient continues to meet criteria for inpatient psychiatric admission for symptom stabilization and safety. Patient will still need to meet with an civil rights attorney for possible deferral. Patient states that she plans to defer. -Medications: Prozac 40 mg by mouth daily for depression/anxiety Benadryl 50 mg by mouth at bedtime when necessary for insomnia -When necessary Vistaril and Haldol for agitation/aggression. -SW on board for discharge planning. Encouraged the patient to participate in milieu.
[2020-07-27] MEDS: hydrOXYzine pamoate 25 MG CAP PO PRN (16:31)
[2020-07-28 06:14] VITALS: BP 96/69; PULSE 73; RESP 17; TEMP 97.9
[2020-07-28] MEDS: FLUoxetine HCL 20 MG CAP PO SCH (07:58)
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
== END 2020-07-28 11:29 | disposition home or self-care (01) | DRG 885 ==
LOC: 3MHU 16:43
PROVIDERS: ADMIT Psychiatry & Neurology Psychiatry; ATTEND Psychiatry & Neurology Psychiatry
DX: F33.2 Major depressive disorder, recurrent severe without psychotic features (principal); E66.9 Obesity, unspecified; F13.10 Sedative, hypnotic or anxiolytic abuse, uncomplicated; F11.10 Opioid abuse, uncomplicated; T42.4X2A Poisoning by benzodiazepines, intentional self-harm, initial encounter; F06.4 Anxiety disorder due to known physiological condition; G43.909 Migraine, unspecified, not intractable, without status migrainosus; Z68.31 Body mass index [BMI] 31.0-31.9, adult; Z78.1 Physical restraint status; Z79.3 Long term (current) use of hormonal contraceptives; Z79.899 Other long term (current) drug therapy; Z56.0 Unemployment, unspecified
CPT/HCPCS: 80061; 83036